=== PATIENT | female | born 1930 | race Caucasian/White ===

== ENCOUNTER 2016-12-22 08:34 | Inpatient (IN) | payer MEDICARE, OTHER ==
[2016-12-22 09:27] LABS: BASOPHILS % 0.3 (0.0-1.5); MEAN CORPUSCULAR HEMOGLOBIN 31.1 pg (28.0-34.0); MEAN CORPUSCULAR VOLUME 98.5 fl (80.0-100.0); MONOCYTES % 6.7 % (0.0-11.0); NEUTROPHILS # 8.6 # k/uL (1.4-7.7)
[2016-12-22] MEDS ORDERED: 0.9 % SODIUM CHLORIDE 1,000 ML IV ONE (10:57)
[2016-12-22] MEDS ORDERED: NORMAL SALINE 500 ML IV.SOLN IV ONE (12:15)
[2016-12-22] MEDS ORDERED: 0.9 % SODIUM CHLORIDE 1,000 ML IV SCH ×2 (12:30→14:00)
[2016-12-22 12:32] LABS: APPEARANCE,URINE CLOUDY (CLEAR); COLOR,URINE YELLOW (YELLOW); OCCULT BLOOD,URINE 2+ (NEGATIVE); PH URINE 6.5 (5.0 - 8.0)
[2016-12-22 12:37] LABS: AMORPHOUS SEDIMENT,UR FEW (NEGATIVE)
[2016-12-22] MEDS: 0.9 % SODIUM CHLORIDE 1,000 ML IV SCH (13:00)
[2016-12-22] MEDS ORDERED: cefTRIAXone SODIUM 1 GM in 0.9 % SODIUM CHLORIDE 50 ML IV SCH (14:00)
[2016-12-22] MEDS ORDERED: IPRATROPIUM/ALBUTEROL SULFATE 3 ML AMPUL.NEB NEB SCH ×3 (14:00→17:00)
--- NOTE | 2016-12-22 15:46 | Diagnostic Imaging Report ---
[facility] [address] [facility] [address] Report Submission Date: Dec 22, 2016 9:42:04 AM CDT Patient Study Name: ZAHRA NAPIER Date: Dec 22, 2016 9:19:19 AM CDT Modality Type: CR Gender: F Description: CHEST : 30 Institution: [facility] Physician KADE LINARES - SUZANNE Chest -one view CLINICAL HISTORY: Cough. Shortness of breath. FINDINGS: Examination of the chest in single portable AP view 12/22/2016 0919 hr with no prior film for comparison demonstrates the lungs to be hypoventilated with slight crowding of the vascular markings. There is no coalescent infiltrate. Cardiac silhouette is prominent and the aorta is atherosclerotic. Severe degenerative changes are seen in the shoulders worse on the right. IMPRESSION: Hypoventilation with crowding of the vascular markings. Aortic atherosclerosis. Severe degenerative changes in the shoulders worse on the right. Electronically signed on Dec 22, 2016 9:42:04 AM CDT by: Umesh MORENO
--- NOTE | 2016-12-22 15:46 | ED Physician Documentation ---
Dyspnea - HISTORIAN Historian: patient, paramedics - HPI Stated Complaint: short of air Chief Complaint: Dyspnea Additional Information: sob cough 2-3 days ago std on levaquin yest but nh thinks she aspirated last noct. pt alert but can barely talk above whisper Duration: continues in ED Initiating Event: upper respiratory illness, aspiration Severity: moderate Exacerbated By: exertion Associated Symptoms: chest discomfort, productive cough Further Comments: yes (pt anorexic this am spo2 = 80's) - ROS CONST: recent illness MS/SKIN/LYMPH: none - PAST HX Lung Disease: other (cough rattling plus sob, hypoxia hoarseness) Cardiac Disease: other (stage 3 renal disease) PE Risk Factors: hypertension Other History: kidney failure Allergies/Adverse Reactions: Allergies Allergy/AdvReac Type Severity Reaction Status Date / Time cimetidine [From Tagamet] Allergy Verified 12/22/16 08:57 cimetidine HCl [From Tagamet] Allergy Verified 12/22/16 08:57 Penicillins Allergy Verified 12/22/16 08:57 Home Medications: Ambulatory Orders Medication Instructions Recorded Atenolol [Tenormin] 25 mg PO DAILY 12/22/16 Brinzolamide/Brimonidine Tart 1 g .ROUTE DAILY 12/22/16 [Simbrinza 1%-0.2% Eye Drops] Citalopram Hydrobromide [Celexa] 20 mg PO DAILY 12/22/16 Divalproex Sodium [Depakote 250 mg PO BID 12/22/16 Sprinkle] Hydrochlorothiazide [Hydrodiuril] 25 mg PO DAILY 12/22/16 Hydroxyzine Pamoate [Vistaril] 25 mg PO BID 12/22/16 Rivastigmine Tartrate [Exelon] 4.5 mg PO DAILY 12/22/16 Ziprasidone HCl [Geodon] 20 mg PO AM 12/22/16 amLODIPine BESYLATE [Norvasc] 2.5 mg PO DAILY 12/22/16 - SOCIAL HX Smoking History: non-smoker Alcohol Use: none Drug Use: none - FAMILY HX Family History: no significant history - REVIEWED ASSESSMENTS Nursing Assessment Reviewed: Yes Vitals Reviewed: Yes ED Results Lab/Radiology - Lab Results Lab Results: Lab Results 12/22/16 12/22/16 09:15 09:15 WBC 10.70 K/ul K/ul (4.00-12.00) RBC 3.17 M/ul L M/ul (3.90-5.20) Hgb 9.8 g/dL L g/dL (12.0-16.0) Hct 31.2 % L % (34.5-46.5) MCV 98.5 fl fl (80.0-100.0) MCH 31.1 pg pg (28.0-34.0) MCHC 31.5 g/dL g/dL (30.0-36.0) RDW 12.9 % % (11.3-14.3) Plt Count 246 K/mm3 K/mm3 (130-400) Neut % (Auto) 79.8 % H % (39.0-79.0) Lymph % (Auto) 9.9 % L % (16.0-50.0) [place] % (Auto) 6.7 % % (0.0-11.0) Eos % (Auto) 1.0 % % (0.0-6.8) Baso % (Auto) 0.3 (0.0-1.5) Neut # 8.6 # k/uL H # k/uL (1.4-7.7) Lymph # 1.1 # k/uL # k/uL (0.6-4.0) [place] # 0.7 # k/uL # k/uL (0.0-0.9) Eos # 0.1 # k/uL # k/uL (0.0-0.6) Baso # 0.0 # k/uL # k/uL (0.0-0.5) Reactive Lymphs % 2.2 % % (0.0-5.0) Reactive Lymphs # 0.2 # k/uL # k/uL (0.0-0.8) Sodium 139 mmol/L mmol/L (136-145) Potassium 3.6 mmol/L mmol/L (3.5-5.0) Chloride 101 mmol/L mmol/L (98-110) Carbon Dioxide 30 mmol/L mmol/L (20-32) BUN 49 mg/dL H mg/dL (10-26) Creatinine 1.9 mg/dL H mg/dL (0.4-1.5) Estimated Creat Clear 39 Est GFR ( Amer) 32 L (60 - ) Est GFR (Non-Af Amer) 27 L (60 - ) Glucose 101 mg/dL H mg/dL (70-99) Calcium 9.1 mg/dL mg/dL (8.5-10.5) Total Bilirubin 0.3 mg/dL mg/dL (0.2-1.2) AST 14 U/L U/L (0-41) ALT 7 U/L U/L (0-45) Alkaline Phosphatase 77 U/L U/L (46-116) Total Protein 6.4 g/dL g/dL (6.0-8.5) Albumin 3.6 g/dL g/dL (3.0-5.5) Amylase 29 U/L U/L (20-104) - Radiology Radiology Impressions: poeri hilar congestion - Orders Orders: ED Orders Category Date Time Status Place IV Lock 1T Care 12/22/16 09:11 Active CHEST 1 VIEW [RAD] Stat Exams 12/22/16 Ordered AMYLASE Routine Lab 12/22/16 09:15 Completed CBC/PLATELET/DIFF Routine Lab 12/22/16 09:15 Completed CMP Routine Lab 12/22/16 09:15 Completed URINALYSIS Routine Lab 12/22/16 09:15 Ordered Oxygen Daily Oxygen 12/22/16 09:15 Ordered EKG WITH COMPARISON Stat Ther 12/22/16 Ordered Dyspnea Physical Exam - EXAM General Appearance: moderate distress EENT: eye inspection normal Neck: nml inspection Respiratory: respiratory distress, wheezes, rales, rhonchi. No: breath sounds nml, speaks full sentences CVS: reg. rate & rhythm, no murmur, no gallop Abdomen: non-tender, no distention Skin: color nml, no rash. No: cyanosis, diaphoresis, pallor Extremities: non-tender. No: normal range of motion (tremor zaid rt hand) Neuro/Psych: oriented x3, motor nml, sensation nml Discharge Clincal Impression: aspoiration pneumonia Home Medications: Ambulatory Orders Atenolol [Tenormin] 25 mg PO DAILY 12/22/16 Brinzolamide/Brimonidine Tart [Simbrinza 1%-0.2% Eye Drops] 1 g .ROUTE DAILY 03/02 Citalopram Hydrobromide [Celexa] 20 mg PO DAILY 12/22/16 Divalproex Sodium [Depakote Sprinkle] 250 mg PO BID 12/22/16 Hydrochlorothiazide [Hydrodiuril] 25 mg PO DAILY 12/22/16 Hydroxyzine Pamoate [Vistaril] 25 mg PO BID 12/22/16 Rivastigmine Tartrate [Exelon] 4.5 mg PO DAILY 12/22/16 Ziprasidone HCl [Geodon] 20 mg PO AM 12/22/16 amLODIPine BESYLATE [Norvasc] 2.5 mg PO DAILY 12/22/16 Comments: adm DR FLORES Condition: Fair Disposition: ADMITTED INPATIENT Decision to Admit: [id number] ([id number]) Decision Time: 10:18
[2016-12-22 16:03] VITALS: BMI 37.8
[2016-12-22] MEDS: cefTRIAXone SODIUM 1 GM in 0.9 % SODIUM CHLORIDE 50 ML IV SCH (16:13)
[2016-12-22] MEDS: ENOXAPARIN SODIUM 30 MG/0.3 ML DISP.SYRIN SQ SCH (16:16)
[2016-12-22] MEDS: IPRATROPIUM/ALBUTEROL SULFATE 3 ML AMPUL.NEB NEB SCH ×2 (16:20→21:20)
--- NOTE | 2016-12-22 18:07 | History and Physical Report ---
History of Present Illnes - History of Present Illness Reason for Visit: Dyspnea History of Present Illness: 86-year-old white female who was transferred to the ED from [facility]. It was felt that the patient had aspirated and was having some respiratory difficulties. Patient had not had any previous problems with aspiration. Patient does have a history of dementia. Patient had not had any recent CVA source TIAs. Patient was seen in the emergency room was noted to have some market pulmonary congestion and that the doctor cough up some green to yellow phlegm. It was felt that the patient had aspiration pneumonia was subsequently admitted to the hospital for further care and evaluation. 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 Gastrointestinal: Other (colon poly) Heme/Onc: Other (B12 def) Psych: Depression ENT: Other (benign paroxysmal vertigo, glaucoma) Endocrine: Hypothyroidism - Past Surgical History Past Surgical History: Cataract Removal - Past Family History Mother Family History: Brother 1 Family History: - Past Social History Smoke: No Alcohol: None Drugs: None Lives: Residential Domestic Violence: Negative - Health Maintenance Health Maintenance: Influenza Vaccine, Pneumococcal Vaccine Influenza Vaccine: Current for this Influenza Season Pneumonia Vaccine: Yes Resuscitation Status: Resusciation Status Resuscitation Status Do Not Resuscitate - Unable to Obtain History Unable to Obtain: No Review of Systems - Review of Systems Constitutional: Weakness. negative: Fever, Chills Eyes: negative: pain, vision change ENT: negative: Ear Pain, Ear Discharge, Nose Pain, Nose Discharge, Nose Congestion, Mouth Pain, Mouth Swelling, Throat Pain Respiratory: Cough, Shortness of Breath, SOB with Excertion, Sputum. negative: Dry, Hemoptysis, Pleuritic Pain, Wheezing, Deferred Cardiovascular: negative: Chest Pain, Palpitations, Orthopnea, Paroxysmal Noc. Dyspnea, Edema, Light Headedness Gastrointestinal: Constipation. negative: Nausea, Vomiting, Abdominal Pain, Diarrhea, Melena, Hematochezia Genitourinary: Dysuria, Frequency, Incontinence Musculoskeletal: negative: Neck Pain, Shoulder Pain, Back Pain Skin: negative: Rash, Lesions, Jaundice Neurological: Confusion. negative: Weakness, Numbness, Incoordination, Change in Speech (weak), Seizures - Medications/Allergies Allergies/Adverse Reactions: Allergies Allergy/AdvReac Type Severity Reaction Status Date / Time cimetidine [From Synthelis] Allergy Verified 12/22/16 08:57 cimetidine HCl [From Tagamet] Allergy Verified 12/22/16 08:57 Penicillins Allergy Verified 12/22/16 08:57 Home Medications: Home Medications Atenolol [Tenormin] 25 mg PO DAILY 12/22/16 Brinzolamide/Brimonidine Tart [Simbrinza 1%-0.2% Eye Drops] 1 g .ROUTE DAILY 03/02 Citalopram Hydrobromide [Celexa] 20 mg PO DAILY 12/22/16 Divalproex Sodium [Depakote Sprinkle] 250 mg PO BID 12/22/16 Hydroxyzine Pamoate [Vistaril] 25 mg PO BID 12/22/16 Rivastigmine Tartrate [Exelon] 4.5 mg PO DAILY 12/22/16 Ziprasidone HCl [Geodon] 20 mg PO AM 12/22/16 amLODIPine BESYLATE [Norvasc] 2.5 mg PO DAILY 12/22/16 Current Inpatient Medications: Current Inpatient Medications Albuterol/Ipratropium (Duoneb) 3 ml NEB Q4 [facility] Last Admin: 12/22/16 16:20 Dose: 3 ml Enoxaparin Sodium (Lovenox) 30 mg SQ QD [facility] Stop: 01/04/17 14:01 Last Admin: 12/22/16 16:16 Dose: 30 mg Sodium Chloride (Normal Saline) 1,000 mls @ 100 mls/hr IV Q10H [facility] Last Admin: 12/22/16 13:00 Dose: 100 mls/hr Ceftriaxone Sodium 1 gm/ (Sodium Chloride) 50 mls @ 100 mls/hr IV QD [facility] Last Admin: 12/22/16 16:13 Dose: 100 mls/hr Sodium Chloride (Normal Saline Flush) 3 ml IV BID [facility] Exam - Exam Vital Signs: Vital Signs (72 hours) 12/22/16 12:57 Temperature 99.5 F Pulse Rate [ 103 H Right] Respiratory 24 Rate Blood Pressure 123/60 [Right Arm] O2 Sat by Pulse 98 Oximetry General: Alert, Oriented to Person, Cooperative, Mild distress. No: Oriented to Place, Oriented to Time HEENT: Atraumatic, PERRLA, Mouth Mucous membr. moist/[place], Nose Mucous membr. moist/[place], Hearing Grossly Normal, Pharyngeal Erythema Neck: Normal Range of Motion. No: Stridor, Rigidity, Lymphadenopathy Carotids: WNL Lungs: Normal air movement, Speaks full Sentences, Respiratory Distress (mild), Rales, Rhonchi. No: Wheezes, Prolonged Expiration, Accessory Muscle Use Cardiovascular: Regular rate, Normal S1, Normal S2, No murmurs. No: Gallops Abdomen: Normal bowel sounds, Soft, No tenderness, No hepatospenomegaly, No masses. No: Distended Integumentary: Normal, [place], Warm, Dry Extremities: No clubbing, No cyanosis, No edema Neurological: Strength Equal Bilat, Normal tone, Sensation intact, Cranial nerves 3-12 NL, Reflexes 2+. No: Normal speech (weak) Psych/Mental Status: Mood NL, Appropriate Affect. No: Mental status NL ( confused), Intact Judgment Assessment/Plan - Assessment/Plan (1) Aspiration pneumonia Status: Acute Current Visit: Yes (2) Essential hypertension Status: Chronic Current Visit: Yes (3) Glaucoma Status: Chronic Current Visit: Yes (4) Dementia Status: Acute Current Visit: Yes (5) Hypothyroidism Status: Chronic Current Visit: Yes Qualifiers: Hypothyroidism type: acquired Qualified Code(s): E03.9 - Hypothyroidism, unspecified (6) Depressed affect Status: Chronic Current Visit: Yes (7) Constipated Status: Chronic Current Visit: Yes Qualifiers: Constipation type: slow transit constipation Qualified Code(s): K59.01 - Slow transit constipation VTE Assessment - RISK FACTOR SCORE VTE RISK FACTOR SCORES: AGE OVER 60 YEARS, ACUTE RESPIRATORY FAILURE/SEVERE COPD - RISK VTE MODERATE RISK: SCORE OF 2 (RISK PROXIMAL DVT 2-4%) PROPHYAXIS NEEDED
[2016-12-22] MEDS ORDERED: AZITHROMYCIN 500 MG VIAL IV ONE (20:11)
[2016-12-22] MEDS ORDERED: 0.9 % SODIUM CHLORIDE 250 ML IV ONE (20:12)
[2016-12-22] MEDS: SALINE FLUSH 10 ML DISP.SYRIN IV SCH (20:22)
[2016-12-22] MEDS: AZITHROMYCIN 500 MG in 0.9 % SODIUM CHLORIDE 250 ML IV SCH (20:28)
[2016-12-22] MEDS ORDERED: SALINE FLUSH 10 ML DISP.SYRIN IVF SCH (21:00)
[2016-12-22] MEDS: ZIPRASIDONE HCL 20 MG CAP PO SCH (21:00)
[2016-12-22] MEDS: VALPROIC ACID (AS SODIUM SALT) 250 MG/5 ML BOTTLE PO SCH (21:08)
[2016-12-22] MEDS: SIMBRINZA OP SCH (21:11)
[2016-12-23] MEDS: ACETAMINOPHEN 500 MG TABLET PO PRN ×2 (00:03→14:49)
[2016-12-23] MEDS: IPRATROPIUM/ALBUTEROL SULFATE 3 ML AMPUL.NEB NEB SCH ×5 (01:00→17:50)
[2016-12-23] MEDS: 0.9 % SODIUM CHLORIDE 1,000 ML IV SCH ×2 (02:10→07:26)
[2016-12-23] MEDS: BENZONATATE 100 MG CAPSULE PO PRN ×2 (02:59→09:37)
[2016-12-23] MEDS: LEVOTHYROXINE SODIUM 100 MCG TABLET PO SCH (06:12)
[2016-12-23 07:09] LABS: BASOPHILS % 0.5 (0.0-1.5); EOSINOPHILS % 0.5 % (0.0-6.8); MEAN CORPUSCULAR HEMOGLOBIN 30.9 pg (28.0-34.0); MEAN CORPUSCULAR VOLUME 97.7 fl (80.0-100.0); MONOCYTES % 6.3 % (0.0-11.0); NEUTROPHILS # 7.7 # k/uL (1.4-7.7)
--- NOTE | 2016-12-23 07:23 | Inpatient Progress Note ---
Subjective - Required Recertification Statement I anticipate X number of days because-include discharge plan: 2 days - Review of Systems Events since last encounter: Patient seem to be more mentally alert today than what she was yesterday. Patient continued to have a productive sounding cough. Patient has been running a low-grade fever. Patient is being maintained on oxygen at 2 to 4 L per nasal cannula. General: Other Pulmonary: Cough. Denies: Dyspnea Cardiovascular: Denies: Chest Pain, Palpitations Objective - Exam Vitals and I&O: Vital Signs Temp 98.5 F 12/23/16 05:51 Pulse 71 12/23/16 05:51 Resp 20 12/23/16 05:51 BP 102/48 12/23/16 05:51 Pulse Ox 98 12/23/16 05:51 Intake & Output 12/22/16 12/22/16 12/23/16 11:59 23:59 11:59 Intake Total 60 1260 Output Total 150 400 Balance -90 860 Weight 99.79 kg Intake: IV 1200 Left Antecubital 1200 Oral 60 60 Output: Urine 150 400 Other: Voiding Method Indwelling Catheter Indwelling Catheter # Bowel Movements 0 0 General: Alert, Oriented to Person. No: Oriented to Place, Oriented to Time HEENT: Atraumatic Neck: Supple Lungs: Normal air movement, Rales, Rhonchi Cardiovascular: Regular rate, Normal S1, Normal S2, No murmurs, Gallops, Murmur , PVC Skin: Normal, [place], Warm Neurological: Normal gait, Normal speech Psych/Mental Status: Mood NL. No: Mental status NL, Appropriate Affect, Intact Judgment - Results Results: Laboratory Results WBC 9.70 K/ul (4.00-12.00) 12/23/16 06:40 RBC 2.72 M/ul (3.90-5.20) L 12/23/16 06:40 Hgb 8.4 g/dL (12.0-16.0) L 12/23/16 06:40 Hct 26.6 % (34.5-46.5) L 12/23/16 06:40 MCV 97.7 fl (80.0-100.0) 12/23/16 06:40 MCH 30.9 pg (28.0-34.0) 12/23/16 06:40 MCHC 31.6 g/dL (30.0-36.0) 12/23/16 06:40 RDW 12.8 % (11.3-14.3) 12/23/16 06:40 Plt Count 224 K/mm3 (130-400) 12/23/16 06:40 Neut % (Auto) 79.3 % (39.0-79.0) H 12/23/16 06:40 Lymph % (Auto) 11.6 % (16.0-50.0) L 12/23/16 06:40 [place] % (Auto) 6.3 % (0.0-11.0) 12/23/16 06:40 Eos % (Auto) 0.5 % (0.0-6.8) 12/23/16 06:40 Baso % (Auto) 0.5 (0.0-1.5) 12/23/16 06:40 Neut # 7.7 # k/uL (1.4-7.7) 12/23/16 06:40 Lymph # 1.1 # k/uL (0.6-4.0) 12/23/16 06:40 [place] # 0.6 # k/uL (0.0-0.9) 12/23/16 06:40 Eos # 0.0 # k/uL (0.0-0.6) 12/23/16 06:40 Baso # 0.0 # k/uL (0.0-0.5) 12/23/16 06:40 Reactive Lymphs % 1.9 % (0.0-5.0) 12/23/16 06:40 Reactive Lymphs # 0.2 # k/uL (0.0-0.8) 12/23/16 06:40 Sodium 139 mmol/L (136-145) 12/22/16 09:15 Potassium 3.6 mmol/L (3.5-5.0) 12/22/16 09:15 Chloride 101 mmol/L (98-110) 12/22/16 09:15 Carbon Dioxide 30 mmol/L (20-32) 12/22/16 09:15 BUN 49 mg/dL (10-26) H 12/22/16 09:15 Creatinine 1.9 mg/dL (0.4-1.5) H 12/22/16 09:15 Estimated Creat Clear 39 12/22/16 09:15 Est GFR ( Amer) 32 (60-) L 12/22/16 09:15 Est GFR (Non-Af Amer) 27 (60-) L 12/22/16 09:15 Glucose 101 mg/dL (70-99) H 12/22/16 09:15 Calcium 9.1 mg/dL (8.5-10.5) 12/22/16 09:15 Total Bilirubin 0.3 mg/dL (0.2-1.2) 12/22/16 09:15 AST 14 U/L (0-41) 12/22/16 09:15 ALT 7 U/L (0-45) 12/22/16 09:15 Alkaline Phosphatase 77 U/L (46-116) 12/22/16 09:15 NT-Pro-B Natriuret Pep 3628.3 pg/mL (15.0-450.0) H 12/22/16 06:00 Total Protein 6.4 g/dL (6.0-8.5) 12/22/16 09:15 Albumin 3.6 g/dL (3.0-5.5) 12/22/16 09:15 Amylase 29 U/L (20-104) 12/22/16 09:15 Urine Color Yellow (YELLOW) 12/22/16 12:24 Urine Appearance Cloudy (CLEAR) H 12/22/16 12:24 Urine pH 6.5 (5.0 - 8.0) 12/22/16 12:24 Ur Specific [place] 1.020 (1.010-1.030) 12/22/16 12:24 Urine Protein 2+ mg/dL (NEGATIVE) H 12/22/16 12:24 Urine Ketones Trace mg/dL (NEGATIVE) H 12/22/16 12:24 Urine Occult Blood 2+ (NEGATIVE) H 12/22/16 12:24 Urine Nitrite Negative (NEGATIVE) 12/22/16 12:24 Urine Bilirubin Negative (NEGATIVE) 12/22/16 12:24 Urine Urobilinogen 4.0 Eu (0.2-1.0) H 12/22/16 12:24 Ur Leukocyte Esterase 1+ (NEGATIVE) H 12/22/16 12:24 Urine RBC 2-5 (0-2 HPF) H 12/22/16 12:24 Urine WBC 5-10 (0-5 HPF) H 12/22/16 12:24 Urine WBC Clumps Present (NEGATIVE) H 12/22/16 12:24 Ur Squamous Epith Cells Few (NEG-FEW) 12/22/16 12:24 Amorphous Sediment Few (NEGATIVE) H 12/22/16 12:24 Urine Bacteria Few (NEGATIVE) H 12/22/16 12:24 Urine Glucose Negative mg/dL (NEGATIVE) 12/22/16 12:24 Assessment/Plan - Assessment/Plan (1) Aspiration pneumonia Status: Acute Current Visit: Yes Assessment: improved (2) Essential hypertension Status: Chronic Current Visit: Yes Assessment: stable (3) Dementia Status: Chronic Current Visit: Yes Assessment: stable (4) Depressed affect Status: Chronic Current Visit: Yes
[2016-12-23 07:25] LABS: eGFR (African) > 60; eGFR (Non-African) 41
[2016-12-23] MEDS ORDERED: cefTRIAXone SODIUM 1 GM in 0.9 % SODIUM CHLORIDE 50 ML IV SCH (09:00)
[2016-12-23] MEDS ORDERED: ENOXAPARIN SODIUM 30 MG/0.3 ML DISP.SYRIN SQ SCH (09:00)
[2016-12-23] MEDS: amLODIPine BESYLATE 5 MG TABLET PO SCH (09:37)
[2016-12-23] MEDS: HYDROCHLOROTHIAZIDE 25 MG TABLET PO SCH (09:37)
[2016-12-23] MEDS: ATENOLOL 25 MG TABLET PO SCH (09:38)
[2016-12-23] MEDS: CITALOPRAM HYDROBROMIDE 20 MG TABLET PO SCH (09:39)
[2016-12-23] MEDS: SALINE FLUSH 10 ML DISP.SYRIN IV SCH ×2 (09:39→20:55)
[2016-12-23] MEDS: LISINOPRIL 20 MG TABLET PO SCH (09:39)
[2016-12-23] MEDS: VALPROIC ACID (AS SODIUM SALT) 250 MG/5 ML BOTTLE PO SCH ×2 (09:43→20:54)
[2016-12-23] MEDS: POLYETHYLENE GLYCOL 3350 17 GM POWD.PACK PO SCH (13:30)
--- NOTE | 2016-12-23 13:55 | Diagnostic Imaging Report ---
REAGAN FLORES [facility] [address] [facility] [address] [address] Report Submission Date: Dec 23, 2016 7:24:29 AM CDT Patient Study Name: ZAHRA NAPIER Date: Dec 23, 2016 7:10:12 AM CDT Modality Type: CR Gender: F Description: CHEST : 30 Institution: [facility] Physician: REAGAN FLORES Chest, AP portable History: Dyspnea, cough Findings: No infiltrate, effusion or pneumothorax is present. Heart size is normal. There is mild pulmonary vascular congestion. Advanced degenerative changes are noted in the shoulders. Since 22 December 2016, no significant change has occurred. Impression: Pulmonary vascular congestion. Electronically signed on Dec 23, 2016 7:24:29 AM CDT by: Torey MORENO
[2016-12-23] MEDS: ENOXAPARIN SODIUM 30 MG/0.3 ML DISP.SYRIN SQ SCH (14:47)
[2016-12-23] MEDS: cefTRIAXone SODIUM 1 GM in 0.9 % SODIUM CHLORIDE 50 ML IV SCH (14:47)
[2016-12-23] MEDS: ZIPRASIDONE HCL 20 MG CAP PO SCH ×2 (14:48→20:54)
[2016-12-23] MEDS: RIVASTIGMINE 4.6 MG/24 HR TD SCH (14:48)
[2016-12-23] MEDS: SIMBRINZA OP SCH (14:50)
[2016-12-23] MEDS: AZITHROMYCIN 500 MG in 0.9 % SODIUM CHLORIDE 250 ML IV SCH (20:53)
[2016-12-23] MEDS: LATANOPROST 0.005% OPTH DROP OP SCH ×2 (21:01→21:05)
[2016-12-24] MEDS: IPRATROPIUM/ALBUTEROL SULFATE 3 ML AMPUL.NEB NEB SCH ×7 (00:04→20:09)
[2016-12-24] MEDS: LEVOTHYROXINE SODIUM 100 MCG TABLET PO SCH (05:45)
[2016-12-24 06:17] LABS: MEAN CORPUSCULAR HEMOGLOBIN 31.3 pg (28.0-34.0); MEAN CORPUSCULAR VOLUME 95.5 fl (80.0-100.0)
[2016-12-24 06:33] LABS: eGFR (African) > 60; eGFR (Non-African) > 60
[2016-12-24 06:51] LABS: MONOCYTES % 4 % (0-11); SEGMENTED NEUTROPHILS % 70 % (39-79)
[2016-12-24] MEDS: LISINOPRIL 20 MG TABLET PO SCH (08:27)
[2016-12-24] MEDS: ATENOLOL 25 MG TABLET PO SCH (08:27)
[2016-12-24] MEDS: CITALOPRAM HYDROBROMIDE 20 MG TABLET PO SCH (08:27)
[2016-12-24] MEDS: HYDROCHLOROTHIAZIDE 25 MG TABLET PO SCH (08:27)
[2016-12-24] MEDS: ZIPRASIDONE HCL 20 MG CAP PO SCH ×2 (08:27→19:23)
[2016-12-24] MEDS: RIVASTIGMINE 4.6 MG/24 HR TD SCH (08:27)
[2016-12-24] MEDS: amLODIPine BESYLATE 5 MG TABLET PO SCH (08:28)
[2016-12-24] MEDS: VALPROIC ACID (AS SODIUM SALT) 250 MG/5 ML BOTTLE PO SCH ×2 (08:28→19:22)
[2016-12-24] MEDS: LATANOPROST 0.005% OPTH DROP OP SCH ×2 (09:08→19:27)
--- NOTE | 2016-12-24 09:29 | Inpatient Progress Note ---
Subjective - Required Recertification Statement I anticipate X number of days because-include discharge plan: 1 - Review of Systems Events since last encounter: Patient seems more mentally alert today. Denies any complaints other then being tired all the time. Breathing seem to be OK. Still has a cough but is improved. General: Denies: Chills, Night Sweats Pulmonary: Denies: Dyspnea, Cough Cardiovascular: Denies: Chest Pain Gastrointestinal: Denies: Nausea, Vomiting, Abdominal Pain, Diarrhea, Constipation Genitourinary: Denies: Dysuria Objective - Exam Vitals and I&O: Vital Signs Temp 97.6 F 12/24/16 08:16 Pulse 82 12/24/16 08:16 Resp 18 12/24/16 08:16 BP 118/67 12/24/16 08:16 Pulse Ox 97 12/24/16 08:16 Intake & Output 12/23/16 12/23/16 12/24/16 11:59 23:59 11:59 Intake Total 1610 690 Output Total 400 550 400 Balance 1210 140 -400 Weight 99.79 kg Intake: IV 1310 Left Antecubital 1310 Oral 300 690 Output: Urine 400 550 400 Other: Voiding Method Indwelling Catheter Indwelling Catheter # Bowel Movements 0 1 General: Alert, Oriented to Person, Cooperative, No acute distress. No: Oriented to Place, Oriented to Time Neck: Supple, No JVD Lungs: Normal air movement, Speaks full Sentences, Rales (in bases). No: Wheezes, Rhonchi Cardiovascular: Regular rate, Normal S1, Normal S2, Murmur Abdomen: Normal bowel sounds, Soft, No tenderness, No hepatospenomegaly Extremities: No clubbing, No cyanosis, No edema Skin: Normal, [place], Warm, Dry Psych/Mental Status: Mental status NL - Results Results: Laboratory Results WBC 8.50 K/ul (4.00-12.00) 12/24/16 06:00 RBC 2.77 M/ul (3.90-5.20) L 12/24/16 06:00 Hgb 8.7 g/dL (12.0-16.0) L 12/24/16 06:00 Hct 26.5 % (34.5-46.5) L 12/24/16 06:00 MCV 95.5 fl (80.0-100.0) 12/24/16 06:00 MCH 31.3 pg (28.0-34.0) 12/24/16 06:00 MCHC 32.8 g/dL (30.0-36.0) 12/24/16 06:00 RDW 13.2 % (11.3-14.3) 12/24/16 06:00 Plt Count 265 K/mm3 (130-400) 12/24/16 06:00 Neut % (Auto) 79.3 % (39.0-79.0) H 12/23/16 06:40 Lymph % (Auto) 11.6 % (16.0-50.0) L 12/23/16 06:40 [place] % (Auto) 6.3 % (0.0-11.0) 12/23/16 06:40 Eos % (Auto) 0.5 % (0.0-6.8) 12/23/16 06:40 Baso % (Auto) 0.5 (0.0-1.5) 12/23/16 06:40 Neut # 7.7 # k/uL (1.4-7.7) 12/23/16 06:40 Lymph # 1.1 # k/uL (0.6-4.0) 12/23/16 06:40 [place] # 0.6 # k/uL (0.0-0.9) 12/23/16 06:40 Eos # 0.0 # k/uL (0.0-0.6) 12/23/16 06:40 Baso # 0.0 # k/uL (0.0-0.5) 12/23/16 06:40 Seg Neutrophils % 70 % (39-79) 12/24/16 06:00 Band Neutrophils % 2 % (0-12) 12/24/16 06:00 Lymphocytes % 22 % (16-50) 12/24/16 06:00 Reactive Lymphs % 1.9 % (0.0-5.0) 12/23/16 06:40 Monocytes % 4 % (0-11) 12/24/16 06:00 Reactive Lymphs # 0.2 # k/uL (0.0-0.8) 12/23/16 06:40 Reactive Lymphocytes 2 % (0-5) 12/24/16 06:00 Plt Morphology Comment Normal (NORMAL) 12/24/16 06:00 RBC Morph Comment Normal (NORMAL) 12/24/16 06:00 Sodium 139 mmol/L (136-145) 12/24/16 06:00 Potassium 3.3 mmol/L (3.5-5.0) L 12/24/16 06:00 Chloride 108 mmol/L (98-110) 12/24/16 06:00 Carbon Dioxide 25 mmol/L (20-32) 12/24/16 06:00 BUN 38 mg/dL (10-26) H 12/24/16 06:00 Creatinine 1.1 mg/dL (0.4-1.5) 12/24/16 06:00 Estimated Creat Clear 68 12/24/16 06:00 Est GFR ( Amer) > 60 (60-) 12/24/16 06:00 Est GFR (Non-Af Amer) > 60 (60-) 12/24/16 06:00 Glucose 109 mg/dL (70-99) H 12/24/16 06:00 Calcium 8.7 mg/dL (8.5-10.5) 12/24/16 06:00 Total Bilirubin 0.3 mg/dL (0.2-1.2) 12/23/16 06:40 AST 18 U/L (0-41) 12/23/16 06:40 ALT 7 U/L (0-45) 12/23/16 06:40 Alkaline Phosphatase 67 U/L (46-116) 12/23/16 06:40 NT-Pro-B Natriuret Pep 6747.4 pg/mL (15.0-450.0) H 12/24/16 06:00 Total Protein 5.3 g/dL (6.0-8.5) L 12/23/16 06:40 Albumin 3.0 g/dL (3.0-5.5) 12/23/16 06:40 Amylase 29 U/L (20-104) 12/22/16 09:15 Urine Color Yellow (YELLOW) 12/22/16 12:24 Urine Appearance Cloudy (CLEAR) H 12/22/16 12:24 Urine pH 6.5 (5.0 - 8.0) 12/22/16 12:24 Ur Specific [place] 1.020 (1.010-1.030) 12/22/16 12:24 Urine Protein 2+ mg/dL (NEGATIVE) H 12/22/16 12:24 Urine Ketones Trace mg/dL (NEGATIVE) H 12/22/16 12:24 Urine Occult Blood 2+ (NEGATIVE) H 12/22/16 12:24 Urine Nitrite Negative (NEGATIVE) 12/22/16 12:24 Urine Bilirubin Negative (NEGATIVE) 12/22/16 12:24 Urine Urobilinogen 4.0 Eu (0.2-1.0) H 12/22/16 12:24 Ur Leukocyte Esterase 1+ (NEGATIVE) H 12/22/16 12:24 Urine RBC 2-5 (0-2 HPF) H 12/22/16 12:24 Urine WBC 5-10 (0-5 HPF) H 12/22/16 12:24 Urine WBC Clumps Present (NEGATIVE) H 12/22/16 12:24 Ur Squamous Epith Cells Few (NEG-FEW) 12/22/16 12:24 Amorphous Sediment Few (NEGATIVE) H 12/22/16 12:24 Urine Bacteria Few (NEGATIVE) H 12/22/16 12:24 Urine Glucose Negative mg/dL (NEGATIVE) 12/22/16 12:24 Assessment/Plan - Assessment/Plan (1) Aspiration pneumonia Status: Acute Current Visit: Yes Assessment: Appears to be improved. Speech therapy consult has been ordered. (2) Essential hypertension Status: Chronic Current Visit: Yes Assessment: stable (3) Glaucoma Status: Chronic Current Visit: Yes Assessment: stable (4) Dementia Status: Acute Current Visit: Yes (5) Hypothyroidism Status: Chronic Current Visit: Yes Qualifiers: Hypothyroidism type: acquired Qualified Code(s): E03.9 - Hypothyroidism, unspecified Assessment: stable (6) Depressed affect Status: Chronic Current Visit: Yes (7) Constipated Status: Chronic Current Visit: Yes Qualifiers: Constipation type: slow transit constipation Qualified Code(s): K59.01 - Slow transit constipation (8) CHF (congestive heart failure) Status: Acute Current Visit: Yes Assessment: Breathing seems to be doing better. BNP is increasing and pulmonary congestion on x-ray. Will start some IV lasix. (9) CKD (chronic kidney disease) stage 3, GFR 30-59 ml/min Status: Acute Current Visit: Yes Assessment: I am not sure what her baseline is. I will try to find on [employer] web site.
[2016-12-24] MEDS: FUROSEMIDE 20 MG/2 ML VIAL IVP SCH ×2 (10:47→20:49)
[2016-12-24] MEDS: SALINE FLUSH 10 ML DISP.SYRIN IV SCH ×2 (10:47→20:50)
[2016-12-24] MEDS: POLYETHYLENE GLYCOL 3350 17 GM POWD.PACK PO SCH (10:52)
[2016-12-24] MEDS: ENOXAPARIN SODIUM 30 MG/0.3 ML DISP.SYRIN SQ SCH (14:00)
[2016-12-24] MEDS: cefTRIAXone SODIUM 1 GM in 0.9 % SODIUM CHLORIDE 50 ML IV SCH (14:20)
[2016-12-24] MEDS: AZITHROMYCIN 500 MG in 0.9 % SODIUM CHLORIDE 250 ML IV SCH (18:47)
[2016-12-25] MEDS: IPRATROPIUM/ALBUTEROL SULFATE 3 ML AMPUL.NEB NEB SCH ×6 (01:05→20:21)
[2016-12-25] MEDS ORDERED: DOCUSATE SODIUM 100 MG CAPSULE ONE (04:36)
[2016-12-25] MEDS: LEVOTHYROXINE SODIUM 100 MCG TABLET PO SCH (05:06)
[2016-12-25] MEDS: BENZONATATE 100 MG CAPSULE PO PRN (05:06)
[2016-12-25] MEDS: CITALOPRAM HYDROBROMIDE 20 MG TABLET PO SCH (08:18)
[2016-12-25] MEDS: HYDROCHLOROTHIAZIDE 25 MG TABLET PO SCH (08:18)
[2016-12-25] MEDS: ZIPRASIDONE HCL 20 MG CAP PO SCH ×2 (08:19→19:53)
[2016-12-25] MEDS: LISINOPRIL 20 MG TABLET PO SCH (08:19)
[2016-12-25] MEDS: FUROSEMIDE 20 MG/2 ML VIAL IVP SCH ×2 (08:20→20:23)
[2016-12-25] MEDS: amLODIPine BESYLATE 5 MG TABLET PO SCH (08:21)
[2016-12-25] MEDS: SALINE FLUSH 10 ML DISP.SYRIN IV SCH ×2 (08:24→19:54)
[2016-12-25] MEDS: VALPROIC ACID (AS SODIUM SALT) 250 MG/5 ML BOTTLE PO SCH ×2 (08:37→19:53)
[2016-12-25] MEDS: RIVASTIGMINE 4.6 MG/24 HR TD SCH (09:08)
[2016-12-25] MEDS: ATENOLOL 25 MG TABLET PO SCH (09:12)
[2016-12-25] MEDS: LATANOPROST 0.005% OPTH DROP OP SCH ×2 (09:14→19:55)
[2016-12-25] MEDS: POLYETHYLENE GLYCOL 3350 17 GM POWD.PACK PO SCH (11:37)
[2016-12-25] MEDS: ENOXAPARIN SODIUM 30 MG/0.3 ML DISP.SYRIN SQ SCH (14:17)
[2016-12-25] MEDS: cefTRIAXone SODIUM 1 GM in 0.9 % SODIUM CHLORIDE 50 ML IV SCH (14:23)
[2016-12-25] MEDS: ACETAMINOPHEN 500 MG TABLET PO PRN (17:55)
[2016-12-25] MEDS: AZITHROMYCIN 500 MG in 0.9 % SODIUM CHLORIDE 250 ML IV SCH (18:11)
[2016-12-26] MEDS: IPRATROPIUM/ALBUTEROL SULFATE 3 ML AMPUL.NEB NEB SCH ×5 (01:32→16:25)
[2016-12-26] MEDS: LEVOTHYROXINE SODIUM 100 MCG TABLET PO SCH (05:34)
--- NOTE | 2016-12-26 06:57 | Diagnostic Imaging Report ---
REAGAN FLORES [facility] [id number] [facility].[address] [id number] Report Submission Date: Dec 26, 2016 6:39:26 AM CDT Patient Study Name: ZAHRA NAPIER Date: Dec 26, 2016 6:11:39 AM CDT Modality Type: CR Gender: F Description: CHEST : 30 Institution: [facility] Physician: REAGAN FLORES Chest 2 views History: Congestive heart failure Findings: Extremely low lung volumes, advance bilateral glenohumeral osteoarthritis, and small bilateral pleural effusions are observed. Moderate bibasilar atelectasis is observed. The lung bases cannot be completely evaluated due to poor inspiratory effort. Impression: 1. Further decrease in lung volumes since the exam obtained 3 days ago. 2. Small bilateral pleural effusions. 3. Moderate bibasilar atelectasis. The lung bases and heart cannot be adequately evaluated due to expiratory technique. Electronically signed on Dec 26, 2016 6:39:26 AM CDT by: Josue MORENO
[2016-12-26 07:31] LABS: eGFR (African) > 60; eGFR (Non-African) > 60
[2016-12-26] MEDS: ZIPRASIDONE HCL 20 MG CAP PO SCH (09:22)
[2016-12-26] MEDS: LISINOPRIL 20 MG TABLET PO SCH (09:22)
[2016-12-26] MEDS: amLODIPine BESYLATE 5 MG TABLET PO SCH (09:22)
[2016-12-26] MEDS: HYDROCHLOROTHIAZIDE 25 MG TABLET PO SCH (09:22)
[2016-12-26] MEDS: ATENOLOL 25 MG TABLET PO SCH (09:23)
[2016-12-26] MEDS: FUROSEMIDE 20 MG/2 ML VIAL IVP SCH (09:23)
[2016-12-26] MEDS: SALINE FLUSH 10 ML DISP.SYRIN IV SCH (09:24)
[2016-12-26] MEDS: LATANOPROST 0.005% OPTH DROP OP SCH (09:24)
[2016-12-26] MEDS: CITALOPRAM HYDROBROMIDE 20 MG TABLET PO SCH (09:24)
[2016-12-26] MEDS: RIVASTIGMINE 4.6 MG/24 HR TD SCH (09:25)
[2016-12-26] MEDS: VALPROIC ACID (AS SODIUM SALT) 250 MG/5 ML BOTTLE PO SCH (09:32)
[2016-12-26] MEDS: POLYETHYLENE GLYCOL 3350 17 GM POWD.PACK PO SCH (10:30)
--- NOTE | 2016-12-26 11:42 | Discharge Summary ---
Discharge Summary - Discharge Sumary History of Present Illness: 86-year-old white female who was transferred to the ED from [facility]. It was felt that the patient had aspirated and was having some respiratory difficulties. Patient had not had any previous problems with aspiration. Patient does have a history of dementia. Patient had not had any recent CVA source TIAs. Patient was seen in the emergency room was noted to have some market pulmonary congestion and that the doctor cough up some green to yellow phlegm. It was felt that the patient had aspiration pneumonia was subsequently admitted to the hospital for further care and evaluation. Condition at Discharge: Stable Home Medications: Ambulatory Orders Medication Instructions Recorded Atenolol [Tenormin] 25 mg PO DAILY 12/22/16 Brinzolamide/Brimonidine Tart 1 g .ROUTE DAILY 12/22/16 [Simbrinza 1%-0.2% Eye Drops] Citalopram Hydrobromide [Celexa] 20 mg PO DAILY 12/22/16 Divalproex Sodium [Depakote 250 mg PO BID 12/22/16 Sprinkle] Hydroxyzine Pamoate [Vistaril] 25 mg PO BID 12/22/16 Rivastigmine Tartrate [Exelon] 4.5 mg PO DAILY 12/22/16 Ziprasidone HCl [Geodon] 20 mg PO AM 12/22/16 amLODIPine BESYLATE [Norvasc] 2.5 mg PO DAILY 12/22/16 Azithromycin [Zithromax] 250 mg PO DAILY #3 tablet 12/26/16 Cefuroxime Axetil [Ceftin] 500 mg PO BID #14 tablet 12/26/16 Furosemide [Lasix] 20 mg PO DAILY #30 tablet 12/26/16 Potassium Chloride [Klor-Con 10 meq PO [id number] #45 capsule.er 12/26/16 Sprinkle] Consultations this Visit: Other (speech terapy) Procedures this Visit: None Allergies/Adverse Reactions: Allergies Allergy/AdvReac Type Severity Reaction Status Date / Time cimetidine [From Tagamet] Allergy Verified 12/22/16 08:57 cimetidine HCl [From Tagamet] Allergy Verified 12/22/16 08:57 Penicillins Allergy Verified 12/22/16 08:57 Patient Problems: Current Active Problems Problem Status Onset Aspiration pneumonia Acute CHF (congestive heart failure) Acute CKD (chronic kidney disease) stage 3, GFR 30-59 ml/min Acute Dementia Acute Hypokalemia Acute Constipated Chronic Depressed affect Chronic Essential hypertension Chronic Glaucoma Chronic Hypothyroidism Chronic Discharge Summary: 86-year-old white female who submitted from [facility]. Patient was felt to have an aspiration pneumonia. Patient was started on the -negative patient treatment and antibiotic therapy of azithromycin and Rocephin. Patient continued to have a productive cough over the first two days after admission. Cough did improve. Patient continued to run a low-grade fever intermittently up to 101. 24 hours prior to discharge patient had remained afebrile. Patient also had an elevated BNP on admission. It was not sure where the patient baseline BNP was. Chest x-ray and BNP were repeated in two days. BNP increased from 3628 to 6747. There is evidence of increasing pulmonary vascular congestion on the chest x-ray. Patient was subsequently started on IV Lasix therapy. Repeat BNP on 612 was 4157. At the time of discharge patient's lungs were much clearer. Patient was maintained on room air to 2 L per nasal cannula. Patient has a history of chronic kidney disease. Creatinine on admission was 1.9 with a BUN of 49. At the time of discharge creatinine was 1.2 with a BUN of 30. Dementia remains stable without any behavioral issues. Hypertension remains stable on home medications. Patient did develop some hypokalemia during the hospitalization was started on supplemental potassium therapy. At the time of dismissal was felt patient was stable enough to she could be managed on an outpatient basis. Patient was discharged in stable condition. - Final Diagnosis (1) Aspiration pneumonia Problems: improved (2) Essential hypertension Problems: stable on home meds (3) Glaucoma Problems: stable (4) Dementia Problems: stable (5) Hypothyroidism Problems: stable on home meds (6) Depressed affect Problems: stable on home meds (8) Hypokalemia Problems: Started on KCL supplement.
--- NOTE | 2016-12-26 12:40 | Inpatient Progress Note ---
Subjective - Required Recertification Statement I anticipate X number of days because-include discharge plan: 1 - Review of Systems Events since last encounter: Patient seem to be doing well at this time. Patient is not have any complaint. Patient states that her breathing is stable. Appetite has been good. Patient is being weaned off of her oxygen therapy. Patient continues on DVT prophylactics. Objective - Exam Vitals and I&O: Vital Signs Temp 101.1 F H 12/25/16 18:00 Pulse 81 12/25/16 18:00 Resp 16 12/25/16 18:00 BP 126/63 12/25/16 18:00 Pulse Ox 97 12/25/16 18:00 Intake & Output 12/24/16 12/25/16 12/25/16 23:59 11:59 23:59 Intake Total 867 993 0928 Output Total 3038 771 5123 Balance -640 -440 480 Intake: Oral 050 996 1923 Output: Urine 1246 049 4746 Other: Voiding Method Indwelling Catheter Toilet Indwelling Catheter # Bowel Movements 1 1 1 General: Alert, Oriented to Person, Cooperative. No: Oriented to Place, Oriented to Time Neck: Supple, No JVD Lungs: Normal air movement, Rhonchi (few on the right) Cardiovascular: Regular rate, Normal S1, Normal S2, No murmurs Abdomen: Normal bowel sounds, Soft, No tenderness Skin: Normal, Marcelline, Warm Psych/Mental Status: Mood NL. No: Mental status NL, Intact Judgment - Results Results: Laboratory Results WBC 8.50 K/ul (4.00-12.00) 12/24/16 06:00 RBC 2.77 M/ul (3.90-5.20) L 12/24/16 06:00 Hgb 8.7 g/dL (12.0-16.0) L 12/24/16 06:00 Hct 26.5 % (34.5-46.5) L 12/24/16 06:00 MCV 95.5 fl (80.0-100.0) 12/24/16 06:00 MCH 31.3 pg (28.0-34.0) 12/24/16 06:00 MCHC 32.8 g/dL (30.0-36.0) 12/24/16 06:00 RDW 13.2 % (11.3-14.3) 12/24/16 06:00 Plt Count 265 K/mm3 (130-400) 12/24/16 06:00 Neut % (Auto) 79.3 % (39.0-79.0) H 12/23/16 06:40 Lymph % (Auto) 11.6 % (16.0-50.0) L 12/23/16 06:40 [place] % (Auto) 6.3 % (0.0-11.0) 12/23/16 06:40 Eos % (Auto) 0.5 % (0.0-6.8) 12/23/16 06:40 Baso % (Auto) 0.5 (0.0-1.5) 12/23/16 06:40 Neut # 7.7 # k/uL (1.4-7.7) 12/23/16 06:40 Lymph # 1.1 # k/uL (0.6-4.0) 12/23/16 06:40 [place] # 0.6 # k/uL (0.0-0.9) 12/23/16 06:40 Eos # 0.0 # k/uL (0.0-0.6) 12/23/16 06:40 Baso # 0.0 # k/uL (0.0-0.5) 12/23/16 06:40 Seg Neutrophils % 70 % (39-79) 12/24/16 06:00 Band Neutrophils % 2 % (0-12) 12/24/16 06:00 Lymphocytes % 22 % (16-50) 12/24/16 06:00 Reactive Lymphs % 1.9 % (0.0-5.0) 12/23/16 06:40 Monocytes % 4 % (0-11) 12/24/16 06:00 Reactive Lymphs # 0.2 # k/uL (0.0-0.8) 12/23/16 06:40 Reactive Lymphocytes 2 % (0-5) 12/24/16 06:00 Plt Morphology Comment Normal (NORMAL) 12/24/16 06:00 RBC Morph Comment Normal (NORMAL) 12/24/16 06:00 Sodium 139 mmol/L (136-145) 12/24/16 06:00 Potassium 3.3 mmol/L (3.5-5.0) L 12/24/16 06:00 Chloride 108 mmol/L (98-110) 12/24/16 06:00 Carbon Dioxide 25 mmol/L (20-32) 12/24/16 06:00 BUN 38 mg/dL (10-26) H 12/24/16 06:00 Creatinine 1.1 mg/dL (0.4-1.5) 12/24/16 06:00 Estimated Creat Clear 68 12/24/16 06:00 Est GFR ( Amer) > 60 (60-) 12/24/16 06:00 Est GFR (Non-Af Amer) > 60 (60-) 12/24/16 06:00 Glucose 109 mg/dL (70-99) H 12/24/16 06:00 Calcium 8.7 mg/dL (8.5-10.5) 12/24/16 06:00 Total Bilirubin 0.3 mg/dL (0.2-1.2) 12/23/16 06:40 AST 18 U/L (0-41) 12/23/16 06:40 ALT 7 U/L (0-45) 12/23/16 06:40 Alkaline Phosphatase 67 U/L (46-116) 12/23/16 06:40 NT-Pro-B Natriuret Pep 6747.4 pg/mL (15.0-450.0) H 12/24/16 06:00 Total Protein 5.3 g/dL (6.0-8.5) L 12/23/16 06:40 Albumin 3.0 g/dL (3.0-5.5) 12/23/16 06:40 Amylase 29 U/L (20-104) 12/22/16 09:15 Urine Color Yellow (YELLOW) 12/22/16 12:24 Urine Appearance Cloudy (CLEAR) H 12/22/16 12:24 Urine pH 6.5 (5.0 - 8.0) 12/22/16 12:24 Ur Specific [place] 1.020 (1.010-1.030) 12/22/16 12:24 Urine Protein 2+ mg/dL (NEGATIVE) H 12/22/16 12:24 Urine Ketones Trace mg/dL (NEGATIVE) H 12/22/16 12:24 Urine Occult Blood 2+ (NEGATIVE) H 12/22/16 12:24 Urine Nitrite Negative (NEGATIVE) 12/22/16 12:24 Urine Bilirubin Negative (NEGATIVE) 12/22/16 12:24 Urine Urobilinogen 4.0 Eu (0.2-1.0) H 12/22/16 12:24 Ur Leukocyte Esterase 1+ (NEGATIVE) H 12/22/16 12:24 Urine RBC 2-5 (0-2 HPF) H 12/22/16 12:24 Urine WBC 5-10 (0-5 HPF) H 12/22/16 12:24 Urine WBC Clumps Present (NEGATIVE) H 12/22/16 12:24 Ur Squamous Epith Cells Few (NEG-FEW) 12/22/16 12:24 Amorphous Sediment Few (NEGATIVE) H 12/22/16 12:24 Urine Bacteria Few (NEGATIVE) H 12/22/16 12:24 Urine Glucose Negative mg/dL (NEGATIVE) 12/22/16 12:24 Stool Guaiac Test Negative (NEGATIVE) 12/24/16 14:21 Assessment/Plan - Assessment/Plan (1) Aspiration pneumonia Status: Acute Current Visit: Yes Assessment: improved, continue antibiotics (2) Essential hypertension Status: Chronic Current Visit: Yes Assessment: stable on home meds (3) Dementia Status: Chronic Current Visit: Yes Narrative Support Text: stable (4) Depressed affect Status: Chronic Current Visit: Yes (5) Diarrhea Status: Acute Current Visit: Yes Narrative Support Text: will get C diff screen
[2016-12-26] MEDS: cefTRIAXone SODIUM 1 GM in 0.9 % SODIUM CHLORIDE 50 ML IV SCH (13:45)
[2016-12-26] MEDS: ENOXAPARIN SODIUM 30 MG/0.3 ML DISP.SYRIN SQ SCH (13:52)
[2016-12-26 18:09] VITALS: BP 114/73
== END 2016-12-26 19:10 | DRG 179 ==
LOC: ED 08:34 → SOUTH 12:50 → INTOOBSV 12:50 → OBSVTOIN 12:50
PROVIDERS: ADMIT Family Medicine; ATTEND Family Medicine
DX: J69.0 Pneumonitis due to inhalation of food and vomit (principal); I10 Essential (primary) hypertension; H40.9 Unspecified glaucoma; F03.90 Unspecified dementia, unspecified severity, without behavioral disturbance, psychotic disturbance, mood disturbance, and anxiety; E03.9 Hypothyroidism, unspecified; F32.9 Major depressive disorder, single episode, unspecified; E87.6 Hypokalemia
CPT/HCPCS: 36415; 51702; 71010; 71020; 80048; 80053; 81002; 82150; 82270; 83880; 85025; 87086; 87493; 92610; 93005; 94640; 94760; 97110; 97162; 97166; 97535; 99283; 99284; A9270; J0456; J0696; J1650; J1940; J7030; J7050; 99223; 99232; 99238; S1016

== ENCOUNTER 2017-06-20 12:51 | Emergency (ER) | payer MEDICARE, OTHER ==
--- NOTE | 2017-06-20 12:57 | ED Physician Documentation ---
General Adult - HISTORIAN Historian: paramedics - [facility] Chief Complaint: General Adult Additional Information: Patient was reported to have been choking on a brussel sprout. Paramedics were called. By thier arrival patient was sitting in a wheelchair, voiced no complaints, SAO2 was 98% on room air. Staff desired the patient to be seen. She was stable during transport. On arrival in the ED she did not have any complaints. SAO2 remained at 97% on room. Patient does have dementia. Voice was normal, patient denies that she has been having any aspiration problems or previous choking episodes. However patient has been admitted before with aspiration. problems Onset: minutes Timing: gone now Context: was eating Last known Well Date: 06/20/17 Last Known Well Time: 12:15 - ROS CONST: no problems. denies: fever, chills - PAST HX Past History: hypertension, other (dementia, B12 def, veritgo) Other History: other (hypothyroidism, depression, glaucoma) Allergies/Adverse Reactions: Allergies Allergy/AdvReac Type Severity Reaction Status Date / Time cimetidine [From Tagamet] Allergy Verified 06/20/17 13:02 cimetidine HCl [From Tagamet] Allergy Verified 06/20/17 13:02 Penicillins Allergy Verified 06/20/17 13:02 Home Medications: Ambulatory Orders Medication Instructions Recorded Citalopram Hydrobromide [Celexa] 20 mg PO DAILY 12/22/16 Divalproex Sodium [Depakote 250 mg PO BID 12/22/16 Sprinkle] Hydroxyzine Pamoate [Vistaril] 25 mg PO BID 12/22/16 Rivastigmine Tartrate [Exelon] 4.5 mg PO DAILY 12/22/16 Ziprasidone HCl [Geodon] 20 mg PO AM 12/22/16 amLODIPine BESYLATE [Norvasc] 2.5 mg PO DAILY 12/22/16 Furosemide [Lasix] 20 mg PO DAILY #30 tablet 12/26/16 Potassium Chloride [Klor-Con 10 meq PO [id number] #45 capsule.er 12/26/16 Sprinkle] - SOCIAL HX Smoking History: non-smoker Alcohol Use: none Drug Use: none - FAMILY HX Family History: No - VITAL SIGNS Vital Signs: Vital Signs Temp Pulse Resp BP Pulse Ox 114/73 12/26/16 18:00 - REVIEWED ASSESSMENTS Nursing Assessment Reviewed: Yes Vitals Reviewed: Yes Progress - Progress Progress: 1342 resting quietly with no complaints ED Results Lab/Radiology - Radiology Radiology Impressions: Chest AP single view Clinical history: Chocking and cough . Mild cardiomegaly with atherosclerotic thoracic aorta. Clear lungs without acute infiltrates or pleural effusion. Mitral valve annulus calcifications. No hyperinflated lungs. Extensive arthritic change of both shoulder joints . Impression: Cardiomegaly with atherosclerotic thoracic aorta No acute infiltrates or pleural effusion Arthritic change in both shoulders No significant change since January 25, 2017 General Adult Physical Exam - PHYSICAL EXAM GENERAL APPEARANCE: no distress EENT: ENT inspection normal, other (edentuous but no dentures in place). No: oral lesions, dry mucous membranes NECK: normal inspection, thyroid normal, supple RESPIRATORY: no resp distress, chest non-tender, breath sounds normal. No: wheezes, rales, rhonchi CVS: reg rate & rhythm, heart sounds normal, equal pulses, no murmur ABDOMEN: soft, no organomegaly SKIN: warm/dry EXTREMITIES: non-tender, no edema NEURO: CN's nml as tested, motor nml, sensation nml. No: oriented X3 (O to person only), mood/affect nml, cognition normal Discharge Clincal Impression: Choking due to food in larynx Qualifiers: Encounter type: initial encounter Qualified Code(s): T17.320A - Food in larynx causing asphyxiation, initial encounter Referrals: Jones Milton MD [Primary Care Provider] - 2 Days Additional Instructions: Encourage home to consider pureed foods for the patient. She may need swallow study done at some time. Watch for signs of pneumonia. Condition: Stable Disposition: [facility] Decision to Admit: NO Date of Decison to Admit: 06/20/17 Decision Time: 13:22
--- NOTE | 2017-06-20 14:15 | Diagnostic Imaging Report ---
LELAND FLORES [facility] [address] [facility].[address] 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 Mild cardiomegaly with atherosclerotic thoracic aorta. Clear lungs without acute infiltrates or pleural effusion. Mitral valve annulus calcifications. No hyperinflated lungs. Extensive arthritic change of both shoulder joints . Impression: Cardiomegaly with atherosclerotic thoracic aorta No acute infiltrates or pleural effusion Arthritic change in both shoulders No significant change since January 25, 2017 Electronically signed on Jun 20, 2017 1:49:38 PM PENS AND PENCILS REPAIRER by: Leland MORENO
[2017-06-20 15:14] VITALS: BP 122/72
== END 2017-06-20 15:10 ==
LOC: ED 12:51
DX: T17.320A Food in larynx causing asphyxiation, initial encounter (principal); X58.XXXA Exposure to other specified factors, initial encounter; Y93.9 Activity, unspecified; Y99.9 Unspecified external cause status
CPT/HCPCS: 71010; 99284

== ENCOUNTER 2017-12-06 12:31 | Outpatient (CLI) | payer MEDICARE, OTHER ==
--- NOTE | 2017-12-07 11:05 | Diagnostic Imaging Report ---
[facility] [address] [facility].[address] [address] Report Submission Date: December 06, 2017 1:21:40 PM CDT Patient Study Name: ZAHRA NAPIER Date: December 06, 2017 12:45:40 PM CDT Modality Type: DX Gender: F Description: CHEST : 30 Institution: [facility] Physician: MAYCO Examination: PA and lateral chest. History: CXR, DIMINISHED LUNG SOUNDS, WHEEZING, NON-COMPLIANT PT, UNABLE TO FOLLOW BREATHING/POSITIONING INSTRUCTIONS (Hx) The comparison exam: 20 June 2017 Findings: PA lateral chest demonstrate a hypoventilated inspiratory effort resulting in crowding of the cardiac and mediastinal silhouette. Tortuous aorta with vascular calcifications. Mild left lower lung parenchymal fullness. No blunting of the costophrenic margins. Articular degenerative changes. Impression: Lung base parenchymal crowding. No effusion. Electronically signed on December 06, 2017 1:21:40 PM CDT by: Xu MORENO
== END 2017-12-06 13:18 ==
LOC: RAD 12:31
PROVIDERS: ATTEND Family Medicine
DX: R06.2 Wheezing (principal); R06.89 Other abnormalities of breathing
CPT/HCPCS: 71046

== ENCOUNTER 2018-01-09 14:21 | Inpatient (IN) | payer MEDICARE, OTHER ==
[2018-01-09 15:44] LABS: BASOPHILS % 0.2 (0.0-1.5); EOSINOPHILS % 1.4 % (0.0-6.8); MEAN CORPUSCULAR HEMOGLOBIN 29.4 pg (28.0-34.0); MEAN CORPUSCULAR VOLUME 89.4 fl (80.0-100.0); MONOCYTES % 5.9 % (0.0-11.0); NEUTROPHILS # 10.2 # k/uL (1.4-7.7)
[2018-01-09 15:59] LABS: eGFR (African) > 60; eGFR (Non-African) > 60
--- NOTE | 2018-01-09 16:48 | Diagnostic Imaging Report ---
REAGAN FLORES [facility] [address] [facility].[address] [address] Report Submission Date: Jan 09, 2018 4:45:17 PM CDT Patient Study Name: ZAHRA NAPIER Date: Jan 09, 2018 4:12:45 PM CDT Modality Type: DX Gender: F Description: ABDOMEN : 30 Institution: [facility] Physician: REAGAN FLORES Examination: Abdomen History: UTI, DECREASED APPETITE, INCREASED CONFUSION TODAY (Hx) Findings: 2 views obtained of the abdomen. No abnormal dilation of the large or small bowel. Air and stool throughout the large bowel. No suspicious calcification projecting over the renal fossa or the lower pelvic region. Pelvic phleboliths. Lumbar and bilateral hip degenerative changes. Impression: No obstruction. No suspicious calcifications by plain film sensitivity. Electronically signed on Jan 09, 2018 4:45:17 PM CDT by: Xu MORENO
--- NOTE | 2018-01-09 16:51 | Diagnostic Imaging Report ---
REAGAN FLORES [facility] [address] [facility].[address] [address] Report Submission Date: Jan 09, 2018 4:46:34 PM CDT Patient Study Name: ZAHRA NAPIER Date: Jan 09, 2018 4:17:30 PM CDT Modality Type: DX Gender: F Description: CHEST : 30 Institution: [facility] Physician: REAGAN FLORES Examination: Portable chest History: Evaluate lungs. UTI, DECREASED APPETITE, INCREASED CONFUSION TODAY (Hx ) Comparison exam: 06 Dec 2017 Findings: Single view of the chest demonstrates a normal cardiac and mediastinal silhouette. Tortuous aorta. Chronic interstitial changes. Lung martinez without focal infiltrate. No blunting of the costophrenic margins. Articular degenerative changes. Impression: Chronic interstitial changes. No acute pulmonary process. Electronically signed on Jan 09, 2018 4:46:34 PM CDT by: Xu MORENO
--- NOTE | 2018-01-09 17:02 | ED Physician Documentation ---
General Adult - HISTORIAN Historian: patient - HPI Stated Complaint: Altered mental status Chief Complaint: Altered Mental Status Additional Information: Patient is a 89-year-old white female from [facility]. Nursing staff stated today the patient has been more lethargic and baseline is not been eating well. Patient seemed to be having some difficulties and pain with swallowing. Patient became slightly hypotensive with his blood pressure is 90/ 60. It was felt that the right side of her face with a little bit more puffy than normal. Patient was felt possibly to be coming septic and was subsequently transferred to the ED. Patient has been having some problems with some recurrent right ear canal infection although has not been placed on any antibiotics over the last week. Patient does have an open sore to her coccyx area that has been treated. Patient is not had any known fever or chills. Patient is demented and is not able to give a history. Timing: still present - ROS CONST: denies: fever, chills EYES/ENT: denies: nasal drainage, nasal congestion CVS/RESP: denies: shortness of breath, cough GI/: denies: abdominal pain, problems urinating, vomiting, nausea, diarrhea - PAST HX Past History: other (dementia, hypothyroidism, paroxysmal vertigo, aspiration, pressure right sacral area) Surgeries/Procedures: other (some abd surgery) Allergies/Adverse Reactions: Allergies Allergy/AdvReac Type Severity Reaction Status Date / Time cimetidine [From Tagamet] Allergy Verified 01/09/18 14:40 cimetidine HCl [From Tagamet] Allergy Verified 01/09/18 14:40 Penicillins Allergy Verified 01/09/18 14:40 Home Medications: Ambulatory Orders Medication Instructions Recorded Rivastigmine Tartrate [Exelon] 4.5 mg PO DAILY 12/22/16 Ziprasidone HCl [Geodon] 20 mg PO AM 12/22/16 Acetaminophen [Tylenol] 1 tab PO PRN PRN 01/09/18 Brinzolamide/Brimonidine Tart 1 drop OP/OT BID 01/09/18 [Simbrinza 1%-0.2% Eye Drops] Buspirone HCl [BUSPAR] 1 tab PO TID 01/09/18 Carvedilol [Coreg] 3.125 mg PO BID 01/09/18 Cholecalciferol (Vitamin D3) 1 tab PO 01/09/18 [Vitamin D3] Donepezil HCl [Aricept] 1 tab PO HS 01/09/18 Ergocalciferol (Vitamin D2) 1 tab PO WEEKLY AT 0600 01/09/18 [Vitamin D-2] Furosemide [Lasix] 1 tab PO DAILY 01/09/18 Lactase [Lactaid] 1 tab PO BID 01/09/18 Melatonin [Melatin] 1 tab PO HS 01/09/18 Mirtazapine [Remeron] 7.5 mg PO HS 01/09/18 Ondansetron [Zofran Odt] 4 mg PO PRN PRN 01/09/18 Quetiapine Fumarate [Seroquel] 1 tab PO TID 01/09/18 Thyroid,Pork [Nature-Throid] 32.5 mg PO DAILY 01/09/18 Tramadol HCl [Ultram] 1 tab PO PRN PRN 01/09/18 - SOCIAL HX Smoking History: non-smoker Alcohol Use: none Drug Use: none - FAMILY HX Family History: No - VITAL SIGNS Vital Signs: Vital Signs Temp Pulse Resp BP Pulse Ox 98.6 F 100 H 17 81/48 98 01/09/18 14:21 01/09/18 14:21 01/09/18 14:21 01/09/18 14:21 01/09/18 14:21 - REVIEWED ASSESSMENTS Nursing Assessment Reviewed: Yes Vitals Reviewed: Yes ED Results Lab/Radiology - Lab Results Lab Results: Lab Results 01/09/18 01/09/18 01/09/18 15:35 15:35 15:35 WBC 12.60 K/ul H K/ul (4.00-12.00) RBC 3.44 M/ul L M/ul (3.90-5.20) Hgb 10.1 g/dL L g/dL (12.0-16.0) Hct 30.8 % L % (34.5-46.5) MCV 89.4 fl fl (80.0-100.0) MCH 29.4 pg pg (28.0-34.0) MCHC 32.9 g/dL g/dL (30.0-36.0) RDW 13.8 % % (11.3-14.3) Plt Count 484 K/mm3 H K/mm3 (130-400) Neut % (Auto) 81.4 % H % (39.0-79.0) Lymph % (Auto) 10.0 % L % (16.0-50.0) [place] % (Auto) 5.9 % % (0.0-11.0) Eos % (Auto) 1.4 % % (0.0-6.8) Baso % (Auto) 0.2 (0.0-1.5) Neut # (Auto) 10.2 # k/uL H # k/uL (1.4-7.7) Lymph # (Auto) 1.3 # k/uL # k/uL (0.6-4.0) [place] # (Auto) 0.8 # k/uL # k/uL (0.0-0.9) Eos # (Auto) 0.2 # k/uL # k/uL (0.0-0.6) Baso # (Auto) 0.0 # k/uL # k/uL (0.0-0.5) Reactive Lymphs % 1.1 % % (0.0-5.0) Reactive Lymphs # 0.1 # k/uL # k/uL (0.0-0.8) Sodium 139 mmol/L mmol/L (136-145) Potassium 3.7 mmol/L mmol/L (3.5-5.1) Chloride 105 mmol/L mmol/L (98-107) Carbon Dioxide 24 mmol/L mmol/L (22-30) BUN 30 mg/dL H mg/dL (7-17) Creatinine 1.10 mg/dL H mg/dL (0.52-1.04) Estimated Creat Clear 38 Est GFR ( Amer) > 60 (60 - ) Est GFR (Non-Af Amer) > 60 (60 - ) Glucose 132 mg/dL H mg/dL (74-106) Lactate 1.6 U/L U/L (0.7-2.1) Calcium 8.4 mg/dL mg/dL (8.4-10.2) Total Bilirubin 0.3 mg/dL mg/dL (0.2-1.3) AST 12 U/L L U/L (15-46) ALT 13 U/L U/L (13-69) Alkaline Phosphatase 86 U/L U/L (38-126) Total Protein 6.9 g/dL g/dL (6.3-8.2) Albumin 3.2 g/dL L g/dL (3.5-5.0) - Radiology Radiology Impressions: Examination: Abdomen History: UTI, DECREASED APPETITE, INCREASED CONFUSION TODAY (Hx) Findings: 2 views obtained of the abdomen. No abnormal dilation of the large or small bowel. Air and stool throughout the large bowel. No suspicious calcification projecting over the renal fossa or the lower pelvic region. Pelvic phleboliths. Lumbar and bilateral hip degenerative changes. Impression: No obstruction. No suspicious calcifications by plain film sensitivity. Examination: Portable chest History: Evaluate lungs. UTI, DECREASED APPETITE, INCREASED CONFUSION TODAY (Hx ) Comparison exam: 06 Dec 2017 Findings: Single view of the chest demonstrates a normal cardiac and mediastinal silhouette. Tortuous aorta. Chronic interstitial changes. Lung martinez without focal infiltrate. No blunting of the costophrenic margins. Articular degenerative changes. Impression: Chronic interstitial changes. No acute pulmonary process. Head CT without contrast History: UTI, DECREASED APPETITE, INCREASED CONFUSION TODAY (Hx) / ITS.REASON change in mental status Technique: Axial images were obtained from the skull base to vertex without contrast. Findings: The ventricular system, basilar cisterns and cortical sulci are generally prominent compatible with age related cortical volume loss. Extensive areas of periventricular to subcortical white matter lucency are present consistent with extensive small vessel ischemic disease. There is no positive mass effect or intra/extra-axial hemorrhage. There is fluid diffusely throughout bilateral mastoid air cells consistent with bilateral mastoiditis. Paranasal sinuses are clear. The calvarium is intact. Overlying the right mandibular ramus, there is abnormal soft tissue swelling as well as a focal low attenuation collection or fluid collection. This finding would be concerning for an abscess in this location. Impression: Age related cortical volume loss with extensive small vessel ischemic disease. No acute intracranial abnormality. Overlying the right mandibular ramus, there is abnormal soft tissue swelling. There is additionally a focal low attenuation collection/fluid collection in this location measuring approximately 2.0 x 1.0 cm in greatest dimension, concerning for an abscess in this location. Please correlate clinically. - Orders Orders: ED Orders Category Date Time Status Place IV Lock 1T Care 01/09/18 14:45 Active ABDOMEN 1VIEW [RAD] Stat Exams 01/09/18 Completed CHEST 1VIEW [RAD] Routine Exams 01/09/[address] BRAIN W/O CONTRAST Stat Exams 01/09/18 Taken BLOOD CULTURE Routine Lab 01/09/18 15:35 Received CBC/PLATELET/DIFF Routine Lab 01/09/18 15:35 Completed CMP Routine Lab 01/09/18 15:35 Completed LACTATE Routine Lab 01/09/18 15:35 Completed URINALYSIS Routine Lab 01/09/18 Ordered URINE CULTURE Routine Lab 01/09/18 16:58 Ordered General Adult Physical Exam - PHYSICAL EXAM GENERAL APPEARANCE: mild distress EENT: eye inspection normal. No: ENT inspection normal (right external ear conal mildly swollen) NECK: normal inspection, thyroid normal RESPIRATORY: no resp distress, chest non-tender, breath sounds normal. No: wheezes, rales, rhonchi CVS: reg rate & rhythm, heart sounds normal, equal pulses, no murmur, no gallop ABDOMEN: soft, no organomegaly, normal bowel sounds, no abdominal bruit, no distension BACK: normal inspection, no CVA tenderness SKIN: other (stage 2-3 pressure sore over coccyx) NEURO: CN's nml as tested, motor nml, sensation nml. No: oriented X3 (Ox0), cognition normal (confused) Discharge Clincal Impression: Facial abscess UTI (urinary tract infection) Qualifiers: Urinary tract infection type: acute cystitis Hematuria presence: with hematuria Qualified Code(s): N30.01 - Acute cystitis with hematuria Condition: Stable Disposition: ADMITTED INPATIENT Decision to Admit: NO Date of Decison to Admit: 01/09/18 Decision Time: 17:22
[2018-01-09 17:05] LABS: APPEARANCE,URINE TURBID (CLEAR); COLOR,URINE YELLOW (YELLOW); OCCULT BLOOD,URINE 1+ (NEGATIVE); UROBILINOGEN URINE 0.2 Eu (0.2-1.0)
[2018-01-09] MEDS ORDERED: VANCOMYCIN HCL 1 GM in 0.9 % SODIUM CHLORIDE 500 ML IV ONE (17:40)
[2018-01-09] MEDS ORDERED: ERTAPENEM SODIUM 1 GM VIAL ONE (17:41)
[2018-01-09] MEDS ORDERED: cefTRIAXone SODIUM 1 GM VIAL ONE (17:43)
[2018-01-09] MEDS ORDERED: VANCOMYCIN HCL 1 GM VIAL IV ONE (17:47)
[2018-01-09] MEDS ORDERED: 0.9 % SODIUM CHLORIDE 500 ML IV ONE (17:59)
--- NOTE | 2018-01-09 18:31 | Diagnostic Imaging Report ---
REAGAN FLORES [facility] [address] [facility] [address] [address] Report Submission Date: Jan 09, 2018 4:53:05 PM CDT Patient Study Name: ZAHRA NAPIER Date: Jan 09, 2018 4:06:56 PM CDT Modality Type: CT Gender: F Description: CT BRAIN W/O CONTRAST : 30 Institution: [facility] Physician: REAGAN FLORES Head CT without contrast History: UTI, DECREASED APPETITE, INCREASED CONFUSION TODAY (Hx) / ITS.REASON change in mental status Technique: Axial images were obtained from the skull base to vertex without contrast. Findings: The ventricular system, basilar cisterns and cortical sulci are generally prominent compatible with age related cortical volume loss. Extensive areas of periventricular to subcortical white matter lucency are present consistent with extensive small vessel ischemic disease. There is no positive mass effect or intra/extra-axial hemorrhage. There is fluid diffusely throughout bilateral mastoid air cells consistent with bilateral mastoiditis. Paranasal sinuses are clear. The calvarium is intact. Overlying the right mandibular ramus, there is abnormal soft tissue swelling as well as a focal low attenuation collection or fluid collection. This finding would be concerning for an abscess in this location. Impression: Age related cortical volume loss with extensive small vessel ischemic disease. No acute intracranial abnormality. Overlying the right mandibular ramus, there is abnormal soft tissue swelling. There is additionally a focal low attenuation collection/fluid collection in this location measuring approximately 2.0 x 1.0 cm in greatest dimension, concerning for an abscess in this location. Please correlate clinically. Electronically signed on Jan 09, 2018 4:53:05 PM CDT by: Heena MORENO
--- NOTE | 2018-01-09 18:44 | History and Physical Report ---
History of Present Illnes - History of Present Illness Reason for Visit: facial abscess History of Present Illness: Patient is a 89-year-old white female from [facility]. Nursing staff stated today the patient has been more lethargic and baseline is not been eating well. Patient seemed to be having some difficulties and pain with swallowing. Patient became slightly hypotensive with his blood pressure is 90/ 60. It was felt that the right side of her face with a little bit more puffy than normal. Patient was felt possibly to be coming septic and was subsequently transferred to the ED. Patient has been having some problems with some recurrent right ear canal infection although has not been placed on any antibiotics over the last week. Patient does have an open sore to her coccyx area that has been treated. Patient is not had any known fever or chills. Patient is demented and is not able to give a history. You should not swelling while there is some question about how well the patient would be taken oral antibiotics. - Past Medical History Cardiac: HTN [employer]ACHINE [employer]: Dementia Gastrointestinal: Other (colon poly) Heme/Onc: Other (B12 def) Psych: Depression ENT: Other (benign paroxysmal vertigo, glaucoma) Endocrine: Hypothyroidism - Past Surgical History Past Surgical History: Cataract Removal - Past Social History Smoke: No Alcohol: None Drugs: None Lives: Prison Domestic Violence: Negative - Health Maintenance Health Maintenance: Influenza Vaccine, Pneumococcal Vaccine Pneumonia Vaccine: Yes Resuscitation Status: FULL CODE Review of Systems - Review of Systems Constitutional: Fever, Chills. negative: Weakness Eyes: negative: pain ENT: Ear Pain, Ear Discharge. negative: Nose Pain, Mouth Pain Respiratory: negative: Cough, Shortness of Breath Cardiovascular: negative: Palpitations Gastrointestinal: negative: Nausea, Vomiting, Abdominal Pain, Diarrhea, Constipation Genitourinary: Incontinence. negative: Frequency, Hematuria Musculoskeletal: negative: Neck Pain, Shoulder Pain Skin: negative: Rash Neurological: Weakness. negative: Numbness, Incoordination - Medications/Allergies Allergies/Adverse Reactions: Allergies Allergy/AdvReac Type Severity Reaction Status Date / Time cimetidine [From Tagamet] Allergy Verified 01/09/18 14:40 cimetidine HCl [From Tagamet] Allergy Verified 01/09/18 14:40 Penicillins Allergy Verified 01/09/18 14:40 Home Medications: Home Medications Acetaminophen [Tylenol] 1 tab PO PRN PRN 01/09/18 Brinzolamide/Brimonidine Tart [Simbrinza 1%-0.2% Eye Drops] 1 drop OP/OT BID Buspirone HCl [BUSPAR] 1 tab PO TID 01/09/18 Carvedilol [Coreg] 3.125 mg PO BID 01/09/18 Cholecalciferol (Vitamin D3) [Vitamin D3] 1 tab PO 01/09/18 Donepezil HCl [Aricept] 1 tab PO HS 01/09/18 Ergocalciferol (Vitamin D2) [Vitamin D-2] 1 tab PO WEEKLY AT 0600 01/09/18 Furosemide [Lasix] 1 tab PO DAILY 01/09/18 Lactase [Lactaid] 1 tab PO BID 01/09/18 Melatonin [Melatin] 1 tab PO HS 01/09/18 Mirtazapine [Remeron] 7.5 mg PO HS 01/09/18 Ondansetron [Zofran Odt] 4 mg PO PRN PRN 01/09/18 Quetiapine Fumarate [Seroquel] 1 tab PO TID 01/09/18 Thyroid,Pork [Nature-Throid] 32.5 mg PO DAILY 01/09/18 Tramadol HCl [Ultram] 1 tab PO PRN PRN 01/09/18 Current Inpatient Medications: Current Inpatient Medications Vancomycin HCl 1 gm/ Sodium (Chloride) 500 mls @ 250 mls/hr IV NOW ONE Stop: 01/09/18 19:39 Last Admin: 01/09/18 18:11 Dose: 250 mls/hr Exam - Exam General: No: Oriented to Person, Oriented to Place, Oriented to Time, Moderate distress HEENT: Atraumatic, PERRLA, Edentulous, Other (mucous membranes dry, tenderness to palpation over the angle of the right jaw with some swelling). No: Pharyngeal Erythema Neck: No: Lymphadenopathy Carotids: WNL Thyroid: WNL Lungs: Clear to auscultation, Normal air movement, Speaks full Sentences. No: Wheezes, Rales, Rhonchi Cardiovascular: Regular rate, Normal S1, Normal S2, No murmurs Abdomen: Normal bowel sounds, Soft, No hepatospenomegaly, No masses Integumentary: Normal, [place], Warm, Dry Extremities: No clubbing, No cyanosis, No edema Neurological: Normal speech, Normal tone, Sensation intact, Cranial nerves 3-12 NL, Reflexes 2+ Psych/Mental Status: No: Mental status NL, Mood NL, Appropriate Affect Assessment/Plan - Assessment/Plan (1) Facial abscess Status: Acute Current Visit: Yes Assessment: will start patient on vancomycin and have ENT consulted about her recurrent ear problems and ? abscess over right mandilbe (2) CHF (congestive heart failure) Status: Inactive Current Visit: No Assessment: stable continue hoome meds (3) Dementia Status: Chronic Current Visit: No Qualifiers: Dementia type: Alzheimer's disease Assessment: continue home meds (4) Essential hypertension Status: Chronic Current Visit: No Assessment: stable (5) Hypothyroidism Status: Chronic Current Visit: No Qualifiers: Hypothyroidism type: acquired Qualified Code(s): E03.9 - Hypothyroidism, unspecified Assessment: stable continue home meds VTE Assessment - RISK FACTOR SCORE VTE RISK FACTOR SCORES: AGE OVER 60 YEARS, ACUTE INFECTION OTHER THEN SEPSIS, ANTICIPATED BED CONFINEMENT OR IMMOBILIZATION > 24 HOURS - RISK VTE HIGH RISK: SCORE OF 3-4 (RISK PROXIMAL DVT 4-8%) PROPHYLAXIS NEEDED
[2018-01-09] MEDS: 0.9 % SODIUM CHLORIDE 1,000 ML IV SCH (20:28)
[2018-01-09 22:11] VITALS: BMI 21.5
[2018-01-10] MEDS: 0.9 % SODIUM CHLORIDE 1,000 ML IV SCH ×2 (05:03→16:30)
[2018-01-10] MEDS ORDERED: ACETAMINOPHEN PO PRN (09:44)
[2018-01-10] MEDS ORDERED: ONDANSETRON HCL 4 MG TAB.RAPDIS PO PRN (09:44)
[2018-01-10] MEDS ORDERED: traMADol HCL 50 MG TABLET PO PRN (09:44)
[2018-01-10 09:49] LABS: BASOPHILS % 0.2 (0.0-1.5); EOSINOPHILS % 1.9 % (0.0-6.8); MEAN CORPUSCULAR HEMOGLOBIN 29.7 pg (28.0-34.0); MEAN CORPUSCULAR VOLUME 91.6 fl (80.0-100.0); MONOCYTES % 5.9 % (0.0-11.0); NEUTROPHILS # 6.2 # k/uL (1.4-7.7)
[2018-01-10 09:58] LABS: eGFR (African) > 60; eGFR (Non-African) > 60
[2018-01-10] MEDS ORDERED: CARVEDILOL 6.25 MG TABLET PO ONE (12:19)
[2018-01-10] MEDS ORDERED: BUSPIRONE HCL 5 MG TABLET PO SCH (13:00)
[2018-01-10] MEDS ORDERED: ACETAMINOPHEN 325 MG TABLET PO PRN (13:11)
[2018-01-10] MEDS: BUSPIRONE HCL 5 MG TABLET PO SCH (18:04)
[2018-01-10] MEDS: traMADol HCL 50 MG TABLET PO PRN (20:05)
[2018-01-10] MEDS: DONEPEZIL HCL 5 MG TABLET PO SCH (20:06)
[2018-01-10] MEDS: CARVEDILOL 6.25 MG TABLET PO SCH (20:08)
[2018-01-10] MEDS ORDERED: DONEPEZIL HCL 5 MG TABLET PO SCH (21:00)
--- NOTE | 2018-01-10 21:34 | Inpatient Progress Note ---
Subjective - Required Recertification Statement I anticipate X number of days because-include discharge plan: 2 days - Review of Systems Events since last encounter: Patient is resting today. Opens eyes to verbal stimuli but does not verbalize. Tender to palpation of right mandible. Not eat or drinking well General: Denies: Chills Pulmonary: Denies: Cough Cardiovascular: Denies: Chest Pain, Palpitations Gastrointestinal: Denies: Nausea, Vomiting, Abdominal Pain Genitourinary: Incontinence Objective - Exam Vitals and I&O: Vital Signs Temp 98.5 F 01/10/18 17:52 Pulse 90 01/10/18 17:52 Resp 20 01/10/18 17:52 BP 130/62 01/10/18 17:52 Pulse Ox 100 01/10/18 17:52 Intake & Output 01/09/18 01/10/18 01/10/18 23:59 11:59 23:59 Intake Total 526 798 8749 Balance 551 446 2075 Weight 56.97 kg Intake: IV 954 449 7155 Left Forearm 087 723 6544 Oral 0 0 300 Other: Voiding Method Diaper Diaper Diaper # Voids 1 1 1 General: Cooperative. No: Alert, Oriented to Person, Oriented to Place, Oriented to Time Neck: Supple, No JVD Lungs: Clear to auscultation. No: Wheezes, Rales, Rhonchi Cardiovascular: Regular rate, Normal S1, Normal S2, No murmurs. No: Gallops Abdomen: Normal bowel sounds, Soft, No tenderness Skin: Other (swelling and tenderness to the right angl area of mandible. No fluctuant mass could be appreciated) Psych/Mental Status: Other (baseline). No: Mental status NL, Mood NL - Results Results: Laboratory Results WBC 8.50 K/ul (4.00-12.00) 01/10/18 09:25 RBC 2.92 M/ul (3.90-5.20) L 01/10/18 09:25 Hgb 8.6 g/dL (12.0-16.0) L 01/10/18 09:25 Hct 26.7 % (34.5-46.5) L 01/10/18 09:25 MCV 91.6 fl (80.0-100.0) 01/10/18 09:25 MCH 29.7 pg (28.0-34.0) 01/10/18 09:25 MCHC 32.4 g/dL (30.0-36.0) 01/10/18 09:25 RDW 13.9 % (11.3-14.3) 01/10/18 09:25 Plt Count 360 K/mm3 (130-400) 01/10/18 09:25 Neut % (Auto) 72.7 % (39.0-79.0) 01/10/18 09:25 Lymph % (Auto) 17.6 % (16.0-50.0) 01/10/18 09:25 [place] % (Auto) 5.9 % (0.0-11.0) 01/10/18 09:25 Eos % (Auto) 1.9 % (0.0-6.8) 01/10/18 09:25 Baso % (Auto) 0.2 (0.0-1.5) 01/10/18 09:25 Neut # (Auto) 6.2 # k/uL (1.4-7.7) 01/10/18 09:25 Lymph # (Auto) 1.5 # k/uL (0.6-4.0) 01/10/18 09:25 [place] # (Auto) 0.5 # k/uL (0.0-0.9) 01/10/18 09:25 Eos # (Auto) 0.2 # k/uL (0.0-0.6) 01/10/18 09:25 Baso # (Auto) 0.0 # k/uL (0.0-0.5) 01/10/18 09:25 Reactive Lymphs % 1.7 % (0.0-5.0) 01/10/18 09:25 Reactive Lymphs # 0.2 # k/uL (0.0-0.8) 01/10/18 09:25 Sodium 142 mmol/L (136-145) 01/10/18 09:25 Potassium 3.9 mmol/L (3.5-5.1) 01/10/18 09:25 Chloride 111 mmol/L (98-107) H 01/10/18 09:25 Carbon Dioxide 23 mmol/L (22-30) 01/10/18 09:25 BUN 29 mg/dL (7-17) H 01/10/18 09:25 Creatinine 0.90 mg/dL (0.52-1.04) 01/10/18 09:25 Estimated Creat Clear 46 01/10/18 09:25 Est GFR ( Amer) > 60 (60-) 01/10/18 09:25 Est GFR (Non-Af Amer) > 60 (60-) 01/10/18 09:25 Glucose 86 mg/dL (74-106) 01/10/18 09:25 Lactate 1.6 U/L (0.7-2.1) 01/09/18 15:35 Calcium 8.1 mg/dL (8.4-10.2) L 01/10/18 09:25 Total Bilirubin < 0.1 mg/dL (0.2-1.3) L 01/10/18 09:25 AST 9 U/L (15-46) L 01/10/18 09:25 ALT 15 U/L (13-69) 01/10/18 09:25 Alkaline Phosphatase 72 U/L (38-126) 01/10/18 09:25 Total Protein 5.8 g/dL (6.3-8.2) L 01/10/18 09:25 Albumin 2.6 g/dL (3.5-5.0) L 01/10/18 09:25 Urine Color Yellow (YELLOW) 01/09/18 15:26 Urine Appearance Turbid (CLEAR) H 01/09/18 15:26 Urine pH 6.0 (5.0 - 8.0) 01/09/18 15:26 Ur Specific [place] 1.015 (1.010-1.030) 01/09/18 15:26 Urine Protein Trace mg/dL (NEGATIVE) H 01/09/18 15:26 Urine Ketones Negative mg/dL (NEGATIVE) 01/09/18 15:26 Urine Occult Blood 1+ (NEGATIVE) H 01/09/18 15:26 Urine Nitrite Positive (NEGATIVE) H 01/09/18 15:26 Urine Bilirubin Negative (NEGATIVE) 01/09/18 15:26 Urine Urobilinogen 0.2 Eu (0.2-1.0) 01/09/18 15:26 Ur Leukocyte Esterase 3+ (NEGATIVE) H 01/09/18 15:26 Urine Glucose Negative mg/dL (NEGATIVE) 01/09/18 15:26 Assessment/Plan - Assessment/Plan (1) Facial abscess Status: Acute Current Visit: Yes Assessment: await ENT consult (2) CHF (congestive heart failure) Status: Inactive Current Visit: No Assessment: stable (3) Dementia Status: Chronic Current Visit: No Qualifiers: Dementia type: Alzheimer's disease Assessment: stable (4) Essential hypertension Status: Chronic Current Visit: No Plan: stable (5) Hypothyroidism Status: Chronic Current Visit: No Qualifiers: Hypothyroidism type: acquired Qualified Code(s): E03.9 - Hypothyroidism, unspecified
[2018-01-10] MEDS: ENOXAPARIN SODIUM 30 MG/0.3 ML DISP.SYRIN SQ SCH (23:59)
[2018-01-11] MEDS: 0.9 % SODIUM CHLORIDE 1,000 ML IV SCH ×3 (00:12→19:29)
[2018-01-11] MEDS ORDERED: FUROSEMIDE 40 MG TABLET PO ONE (00:23)
[2018-01-11] MEDS ORDERED: VANCOMYCIN HCL 1 GM in 0.9 % SODIUM CHLORIDE 500 ML IV SCH (06:00)
[2018-01-11] MEDS: LEVOTHYROXINE SODIUM 25 MCG TABLET PO SCH (06:03)
[2018-01-11] MEDS: LEVOTHYROXINE SODIUM 100 MCG TABLET PO SCH (06:03)
[2018-01-11] MEDS ORDERED: ZIPRASIDONE HCL 20 MG CAP PO SCH (09:00)
[2018-01-11] MEDS ORDERED: FUROSEMIDE 40 MG TABLET PO SCH (09:00)
[2018-01-11] MEDS ORDERED: LEVOTHYROXINE SODIUM 100 MCG TABLET PO SCH ×2 (09:00)
[2018-01-11 10:11] LABS: BASOPHILS % 0.3 (0.0-1.5); EOSINOPHILS % 0.9 % (0.0-6.8); MEAN CORPUSCULAR HEMOGLOBIN 29.9 pg (28.0-34.0); MEAN CORPUSCULAR VOLUME 96.5 fl (80.0-100.0); MONOCYTES % 4.6 % (0.0-11.0); NEUTROPHILS # 4.9 # k/uL (1.4-7.7)
[2018-01-11 10:29] LABS: eGFR (African) > 60; eGFR (Non-African) > 60
[2018-01-11] MEDS: CARVEDILOL 6.25 MG TABLET PO SCH ×3 (10:35→21:23)
[2018-01-11] MEDS: traMADol HCL 50 MG TABLET PO PRN ×2 (10:36→21:06)
[2018-01-11] MEDS: FUROSEMIDE 40 MG TABLET PO SCH (10:36)
[2018-01-11] MEDS: BUSPIRONE HCL 5 MG TABLET PO SCH ×3 (10:36→17:02)
[2018-01-11] MEDS: DONEPEZIL HCL 5 MG TABLET PO SCH ×2 (21:03→21:23)
[2018-01-11] MEDS: ENOXAPARIN SODIUM 30 MG/0.3 ML DISP.SYRIN SQ SCH (21:04)
[2018-01-12] MEDS: 0.9 % SODIUM CHLORIDE 1,000 ML IV SCH (05:44)
[2018-01-12] MEDS: LEVOTHYROXINE SODIUM 25 MCG TABLET PO SCH (07:26)
[2018-01-12] MEDS: LEVOTHYROXINE SODIUM 100 MCG TABLET PO SCH (07:27)
[2018-01-12] MEDS ORDERED: DOXYCYCLINE MONOHYDRATE 100 MG CAPSULE PO SCH (09:00)
[2018-01-12 09:50] VITALS: BP 180/88
[2018-01-12] MEDS: CARVEDILOL 6.25 MG TABLET PO SCH (10:32)
[2018-01-12] MEDS: FUROSEMIDE 40 MG TABLET PO SCH (10:33)
[2018-01-12] MEDS: BUSPIRONE HCL 5 MG TABLET PO SCH (10:33)
[2018-01-17] MEDS ORDERED: ERGOCALCIFEROL (VITAMIN D2) 50,000 UNIT CAPSULE PO SCH ×2 (06:00)
--- NOTE | 2018-01-18 09:57 | OP Clinic Progress Note ---
REASON FOR VISIT: This female is seen on the [place]ataya in bed. She is not mentally competent. I looked at a CT scan that she had of the head and at least as far as the nose and the sinuses go, I do not see any active disease. The patient is edentulous. With a tongue blade, I got a fairly good look at the oral cavity and oropharynx. Again, she is edentulous. I do not see a gross infection of the throat. I did culture the throat with the assistance of the nurses. Both ear canals are extremely tiny and even with assistance, I really cannot get down into the canals. The left side does not appear to be infected. The right one does appear to be infected. I cultured the right ear. Currently, the nurses are trying to get a possible culture report from the long term. She is on vancomycin. PLAN: As noted, there were 2 cultures obtained today. I will review those to see if there ought to be a specific ear drop given. The very tiny narrow slits of the meatus will make this extremely difficult getting drops of any type in the ear. In addition, the patient is significantly uncooperative making this additionally a very difficult task. I will review the culture reports and see whether she is improving. cc: Dr. Leland MORENO
--- NOTE | 2018-01-29 08:18 | Discharge Summary ---
Discharge Summary - Discharge Sumary History of Present Illness: Patient is a 89-year-old white female from [facility]. Nursing staff stated today the patient has been more lethargic and baseline is not been eating well. Patient seemed to be having some difficulties and pain with swallowing. Patient became slightly hypotensive with his blood pressure is 90/ 60. It was felt that the right side of her face with a little bit more puffy than normal. Patient was felt possibly to be coming septic and was subsequently transferred to the ED. Patient has been having some problems with some recurrent right ear canal infection although has not been placed on any antibiotics over the last week. Patient does have an open sore to her coccyx area that has been treated. Patient is not had any known fever or chills. Patient is demented and is not able to give a history. Condition at Discharge: Stable Home Medications: Ambulatory Orders Medication Instructions Recorded Rivastigmine Tartrate [Exelon] 4.5 mg PO DAILY 12/22/16 Ziprasidone HCl [Geodon] 20 mg PO AM 12/22/16 Acetaminophen [Tylenol] 1 tab PO PRN PRN 01/09/18 Brinzolamide/Brimonidine Tart 1 drop OP/OT BID 01/09/18 [Simbrinza 1%-0.2% Eye Drops] Buspirone HCl [BUSPAR] 1 tab PO TID 01/09/18 Carvedilol [Coreg] 3.125 mg PO BID 01/09/18 Cholecalciferol (Vitamin D3) 1 tab PO 01/09/18 [Vitamin D3] Donepezil HCl [Aricept] 1 tab PO HS 01/09/18 Ergocalciferol (Vitamin D2) 1 tab PO WEEKLY AT 0600 01/09/18 [Vitamin D-2] Furosemide [Lasix] 1 tab PO DAILY 01/09/18 Lactase [Lactaid] 1 tab PO BID 01/09/18 Melatonin [Melatin] 1 tab PO HS 01/09/18 Mirtazapine [Remeron] 7.5 mg PO HS 01/09/18 Ondansetron [Zofran Odt] 4 mg PO PRN PRN 01/09/18 Quetiapine Fumarate [Seroquel] 1 tab PO TID 01/09/18 Thyroid,Pork [Nature-Throid] 32.5 mg PO DAILY 01/09/18 Tramadol HCl [Ultram] 1 tab PO PRN PRN 01/09/18 Doxycycline Monohydrate 100 mg PO BID capsule 01/12/18 [Vibramycin] Consultations this Visit: Other (ENT) Procedures this Visit: None Allergies/Adverse Reactions: Allergies Allergy/AdvReac Type Severity Reaction Status Date / Time cimetidine [From Tagamet] Allergy Verified 01/09/18 14:40 cimetidine HCl [From Tagamet] Allergy Verified 01/09/18 14:40 Penicillins Allergy Verified 01/09/18 14:40 Discharge Summary: Because of the patient multiple anabiotic recommended she had prior to her hospitalization patient was started on vancomycin for broad coverage. Patient swelling and erythema did seem to improvement. There is a question whether the patient may be having some mastoid -itis. Otolaryngology consult was obtained. Patient did exhibit improvement with the swelling and erythema to her facial area. At the time to discharge it was felt that the patient could be continued to be managed on an outpatient basis. Patient dementia remains stable with confusion. Other chronic medical problems remain stable. It was felt that the patient continues to have problems that she may need to have surgical incision and drainage of her mastoid sinuses. - Final Diagnosis (1) Facial abscess Problems: improved (2) CHF (congestive heart failure) Problems: Stable on home medications (3) Dementia Problems: Stable on home medications (4) Essential hypertension Problems: Stable on home medications (5) Hypothyroidism Problems: Stable on home medications
--- NOTE | 2018-01-29 08:22 | Inpatient Progress Note ---
Subjective - Required Recertification Statement I anticipate X number of days because-include discharge plan: 1 day - Review of Systems Events since last encounter: Patient does seem to be doing better today. Patient WBC count has decreased from 12,000 to 6,800. Patient remained afebrile at this time. Patient does seem to be clinically better. Objective - Exam Vitals and I&O: Vital Signs Temp 97.4 F L 01/12/18 09:55 Pulse 71 01/12/18 09:55 Resp 20 01/12/18 09:55 BP 180/88 01/12/18 09:55 Pulse Ox 98 01/12/18 09:55 General: Alert, Oriented to Person. No: Oriented to Place, Oriented to Time Neck: Supple Lungs: Clear to auscultation, Normal air movement, Speaks full Sentences Cardiovascular: Regular rate, Normal S1, Normal S2, No murmurs Abdomen: Normal bowel sounds, Soft Skin: Cellulitis Psych/Mental Status: No: Appropriate Affect, Intact Judgment - Results Results: Laboratory Results WBC 6.80 K/ul (4.00-12.00) 01/11/18 09:45 RBC 2.79 M/ul (3.90-5.20) L 01/11/18 09:45 Hgb 8.4 g/dL (12.0-16.0) L 01/11/18 09:45 Hct 27.0 % (34.5-46.5) L 01/11/18 09:45 MCV 96.5 fl (80.0-100.0) 01/11/18 09:45 MCH 29.9 pg (28.0-34.0) 01/11/18 09:45 MCHC 31.0 g/dL (30.0-36.0) 01/11/18 09:45 RDW 13.4 % (11.3-14.3) 01/11/18 09:45 Plt Count 349 K/mm3 (130-400) 01/11/18 09:45 Neut % (Auto) 72.2 % (39.0-79.0) 01/11/18 09:45 Lymph % (Auto) 20.4 % (16.0-50.0) 01/11/18 09:45 [place] % (Auto) 4.6 % (0.0-11.0) 01/11/18 09:45 Eos % (Auto) 0.9 % (0.0-6.8) 01/11/18 09:45 Baso % (Auto) 0.3 (0.0-1.5) 01/11/18 09:45 Neut # (Auto) 4.9 # k/uL (1.4-7.7) 01/11/18 09:45 Lymph # (Auto) 1.4 # k/uL (0.6-4.0) 01/11/18 09:45 [place]end[place] # (Auto) 0.3 # k/uL (0.0-0.9) 01/11/18 09:45 Eos # (Auto) 0.1 # k/uL (0.0-0.6) 01/11/18 09:45 Baso # (Auto) 0.0 # k/uL (0.0-0.5) 01/11/18 09:45 Reactive Lymphs % 1.7 % (0.0-5.0) 01/11/18 09:45 Reactive Lymphs # 0.1 # k/uL (0.0-0.8) 01/11/18 09:45 Sodium 142 mmol/L (136-145) 01/11/18 09:45 Potassium 3.9 mmol/L (3.5-5.1) 01/11/18 09:45 Chloride 114 mmol/L (98-107) H 01/11/18 09:45 Carbon Dioxide 21 mmol/L (22-30) L 01/11/18 09:45 BUN 26 mg/dL (7-17) H 01/11/18 09:45 Creatinine 0.90 mg/dL (0.52-1.04) 01/11/18 09:45 Estimated Creat Clear 46 01/11/18 09:45 Est GFR ( Amer) > 60 (60-) 01/11/18 09:45 Est GFR (Non-Af Amer) > 60 (60-) 01/11/18 09:45 Glucose 73 mg/dL (74-106) L 01/11/18 09:45 Lactate 1.6 U/L (0.7-2.1) 01/09/18 15:35 Calcium 7.9 mg/dL (8.4-10.2) L 01/11/18 09:45 Total Bilirubin 0.1 mg/dL (0.2-1.3) L 01/11/18 09:45 AST 11 U/L (15-46) L 01/11/18 09:45 ALT 17 U/L (13-69) 01/11/18 09:45 Alkaline Phosphatase 74 U/L (38-126) 01/11/18 09:45 Total Protein 5.6 g/dL (6.3-8.2) L 01/11/18 09:45 Albumin 2.6 g/dL (3.5-5.0) L 01/11/18 09:45 Urine Color Yellow (YELLOW) 01/09/18 15:26 Urine Appearance Turbid (CLEAR) H 01/09/18 15:26 Urine pH 6.0 (5.0 - 8.0) 01/09/18 15:26 Ur Specific Council 1.015 (1.010-1.030) 01/09/18 15:26 Urine Protein Trace mg/dL (NEGATIVE) H 01/09/18 15:26 Urine Ketones Negative mg/dL (NEGATIVE) 01/09/18 15:26 Urine Occult Blood 1+ (NEGATIVE) H 01/09/18 15:26 Urine Nitrite Positive (NEGATIVE) H 01/09/18 15:26 Urine Bilirubin Negative (NEGATIVE) 01/09/18 15:26 Urine Urobilinogen 0.2 Eu (0.2-1.0) 01/09/18 15:26 Ur Leukocyte Esterase 3+ (NEGATIVE) H 01/09/18 15:26 Urine Glucose Negative mg/dL (NEGATIVE) 01/09/18 15:26 Assessment/Plan - Assessment/Plan (1) Facial abscess Status: Acute Assessment: Right facial area cellulitis appeared to be improving. (2) Dementia Status: Chronic Qualifiers: Dementia type: Alzheimer's disease (3) Essential hypertension Status: Chronic (4) Hypothyroidism Status: Chronic Qualifiers: Hypothyroidism type: acquired Qualified Code(s): E03.9 - Hypothyroidism, unspecified
== END 2018-01-12 11:22 | DRG 603 ==
LOC: ED 14:21 → SOUTH 17:25
PROVIDERS: ADMIT Family Medicine; ATTEND Family Medicine
DX: L02.01 Cutaneous abscess of face (principal); I50.9 Heart failure, unspecified; F03.90 Unspecified dementia, unspecified severity, without behavioral disturbance, psychotic disturbance, mood disturbance, and anxiety; I10 Essential (primary) hypertension; E03.9 Hypothyroidism, unspecified
CPT/HCPCS: 36415; 51701; 70450; 71045; 74018; 80053; 81002; 83605; 85025; 87040; 87070; 87086; 96365; 96366; 96367; 99222; 99232; 99238; J1650; J3370; J7060; J7030; S1016

== ENCOUNTER 2018-02-14 12:57 | Outpatient (CLI) | payer MEDICARE, OTHER ==
--- NOTE | 2018-02-15 16:34 | OP Clinic Progress Note ---
REASON FOR VISIT: This lady is seen in follow up of a hospital consultation of a week ago. She had significant problems feeding and swallowing. 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 Cultures taken of her right ear from which she had drainage and also of the throat have no significant pathogens. She has been treated with IV antibiotics previously. Again, the drainage from the right ear has stopped. Both ear canals are markedly narrowed. In fact, the jaw joints opening and closing them occludes the ear canal, more on the right side than on the left. I used a pediatric fiberoptic scope to see down the ear canal. There is no perforation. There is no major build up of debris, nor is there any significant debris occlusion. I confirmed that alcohol drops would need to be in the future, however, 91% were placed in the ear canal and there is no significant pain, confirming again , there is no perforation of the eardrum. I can see 85% of the eardrum and there is no hole or perforation and there is no middle ear fluid. PLAN: I also used a flexible fiberoptic laryngoscope down the right nostril. The moderate edema and erythema that she had previously has principally resolved. There is no evident paralysis of the vocal cords. There is no gross cervical abnormality. I have also looked in her mouth and I see no evidence of an abscess, particularly along her right ramus, that was mentioned as a possibility in a prior radiographic evaluation. Currently, I have not made any recommendations. TIFFANIE
== END 2018-02-14 13:00 ==
LOC: ENT 12:57
PROVIDERS: ATTEND Otolaryngology
DX: R60.9 Edema, unspecified (principal); R13.10 Dysphagia, unspecified
CPT/HCPCS: 31575; G0463

== ENCOUNTER 2018-11-03 09:06 | Emergency (ER) | payer MEDICARE, OTHER ==
[2018-11-03] MEDS: LACTATED RINGERS 1,000 ML IV SCH (09:06)
--- NOTE | 2018-11-03 09:38 | ED Physician Documentation ---
General Adult - HISTORIAN Historian: patient - HPI Stated Complaint: unresponsive Chief Complaint: General Adult Timing: still present Severity: mild Further Comments: yes (Per EMS she was found unresponsive by staff - she ususally is confused although responsive. She was then found to have a low blood pressure) Last known Well Code/Unknown Code: Unknown - ROS CONST: other (diarrhea per staff ) CVS/RESP: none GI/: none MS/SKIN/LYMPH: none - PAST HX Past History: CHF Allergies/Adverse Reactions: Allergies Allergy/AdvReac Type Severity Reaction Status Date / Time cimetidine [From Tagamet] Allergy Verified 11/03/18 10:11 cimetidine HCl [From Tagamet] Allergy Verified 11/03/18 10:11 Penicillins Allergy Verified 11/03/18 10:11 Home Medications: Ambulatory Orders Medication Instructions Recorded Ziprasidone HCl [Geodon] 20 mg PO 1200 12/22/16 Brinzolamide/Brimonidine Tart 1 drop OP/OT BID 01/09/18 [Simbrinza 1%-0.2% Eye Drops] Ergocalciferol (Vitamin D2) 1 tab PO WEEKLY AT 0600 01/09/18 [Vitamin D-2] Furosemide [Lasix] 1 tab PO DAILY 01/09/18 Lactase [Lactaid] 1 tab PO TID 01/09/18 Mirtazapine [Remeron] 7.5 mg PO HS 01/09/18 Ondansetron [Zofran Odt] 4 mg PO PRN PRN 01/09/18 Quetiapine Fumarate [Seroquel] 1 tab PO TID 01/09/18 Haloperidol [Haldol] 1 mg PO TID 11/03/18 Hydrocodone/Acetaminophen [Hycet 7.5 ml PO TID 11/03/18 7.5-325Mg/15 ml Ud Cup] Thymol/Chlorophyllin [Chlorophyll 3 mg PO BID 11/03/18 3 mg Tablet] Ziprasidone HCl [Geodon] 40 mg PO BID 11/03/18 - SOCIAL HX Smoking History: non-smoker Alcohol Use: none Drug Use: none - FAMILY HX Family History: No - VITAL SIGNS Vital Signs: Vital Signs Temp Pulse Resp BP Pulse Ox 180/88 01/12/18 09:55 - REVIEWED ASSESSMENTS Nursing Assessment Reviewed: Yes Vitals Reviewed: Yes Progress - Progress Progress: 0945: she did yell out and try to hit with change of bed. She was found to have a large amount of odorous stool DG 1150: daughter did arrive and we did discuss findings and plan - she is agreeable DG ED Results Lab/Radiology - Radiology Radiology Impressions: Chest AP portable at 921 hours of November 03, 2018 Clinical history: Difficulty breathing Mild cardiomegaly with atherosclerotic thoracic aorta. No acute infiltrates or pleural effusion. No pneumothorax. Extensive arthritic changes of both shoulders , probably rheumatoid arthritis . Impression: No acute infiltrate or pleural effusion Electronically signed on Nov 03, 2018 9:47:48 AM CDT by: Leland Ellison - Orders Orders: ED Orders Category Date Time Status Continuous EKG monitoring Q1H Care 11/03/18 09:20 Ordered IV Started NOW Care 11/03/18 09:20 Ordered CHEST 1VIEW [RAD] Stat Exams 11/03/18 Ordered CBC/PLATELET/DIFF Stat Lab 11/03/18 09:20 Ordered CMP Stat Lab 11/03/18 09:20 Ordered PTINR [PT-INR] Routine Lab 11/03/18 Ordered LACTATED RINGERS @ 125 MLS/HR(1,000ml) Med 11/03/18 09:30 Ordered Lactated Ringers [Ringers, Lactated] 1,000 ml IV Q8H General Adult Physical Exam - PHYSICAL EXAM GENERAL APPEARANCE: no distress EENT: dry mucous membranes NECK: normal inspection RESPIRATORY: no resp distress, chest non-tender, breath sounds normal CVS: reg rate & rhythm, heart sounds normal ABDOMEN: soft, normal bowel sounds, no distension, non-tender SKIN: warm/dry, other (several old small skin tears and bruises ) EXTREMITIES: non-tender, no edema NEURO: other (she does not repsond to verbal stimuli - minimal response to pain ) Discharge Clincal Impression: Unresponsive, Dehydration Diarrhea Qualifiers: Diarrhea type: unspecified type Qualified Code(s): R19.7 - Diarrhea, unspecified Referrals: Jones Milton MD [Primary Care Provider] - 2 Days Comments: 1. Continue meds 2. Await study on stool sent off 3. Follow up with PCP in 2 days 4. Increase her intake 5. Return to ER for any increasing concerns Condition: Stable Disposition: 01 HOME, SELF-CARE Decision to Admit: NO Date of Decison to Admit: 11/03/18 Decision Time: 10:40
[2018-11-03 09:48] LABS: eGFR (Non-African) > 60
--- NOTE | 2018-11-03 09:58 | Diagnostic Imaging Report ---
CARSON HER [facility] [id number] [facility] [address] [place], [place]. [address] Report Submission Date: Nov 03, 2018 9:47:48 AM CDT Patient Study Name: ZAHRA NAPIER Date: Nov 03, 2018 9:21:05 AM CDT Modality Type: DX Gender: F Description: CHEST 1VIEW : 30 Institution: [facility] Physician: CARSON HER Chest AP portable at 921 hours of November 03, 2018 Clinical history: Difficulty breathing Mild cardiomegaly with atherosclerotic thoracic aorta. No acute infiltrates or pleural effusion. No pneumothorax. Extensive arthritic changes of both shoulders , probably rheumatoid arthritis . Impression: No acute infiltrate or pleural effusion Electronically signed on Nov 03, 2018 9:47:48 AM CDT by: Leland MORENO
[2018-11-03 10:00] LABS: MEAN CORPUSCULAR HEMOGLOBIN 29.8 pg (28.0-34.0)
[2018-11-03 10:01] LABS: EOSINOPHILS % 11 % (0-7); MONOCYTES % 8 % (0-11); PLT EST. EST. AGREES W/PLT CT; SEGMENTED NEUTROPHILS % 60 % (39-79)
[2018-11-03 10:02] LABS: HYPOCHROMASIA 2+ (NEGATIVE)
[2018-11-03] MEDS: 0.9 % SODIUM CHLORIDE 1,000 ML IV ONE ×2 (10:05)
[2018-11-03 11:55] VITALS: BP 142/76
== END 2018-11-03 11:53 | disposition home or self-care (01) ==
LOC: ED 09:06
DX: R19.7 Diarrhea, unspecified (principal); E86.0 Dehydration
CPT/HCPCS: 36415; 71045; 80053; 82272; 85025; 85610; 87493; 96360; 99283; 99284; J7030; J7120